=== PATIENT | male | born 1970 | race Caucasian/White ===

== ENCOUNTER 2016-11-22 18:22 | Observation (INO) ==
[2016-11-22] MEDS ORDERED: Aspirin 81 MG TAB.CHEW PO ONE (18:44)
[2016-11-22 19:04] LABS: Basophils % 0.4 %; Eosinophils # 0.1 K/mcL (0.0-0.6); Eosinophils % 1.3 %; Hemoglobin 15.8 g/dL (12.9-16.9); Immature Granulocytes % 0.3 % (0-4); Immature Platelets 3.9 % (1.1-6.1); Lymphocytes # 2.1 K/mcL (0.6-4.6); Lymphocytes % 27.7 %; Mean Corpuscular HGB Conc 35.1 g/dL (31.6-35.5); Mean Corpuscular Hemoglobin 29.5 pg (28.0-33.3); Mean Corpuscular Volume 84.1 fL (83.0-100.0); Mean Platelet Volume 10.7 fL (9.4-12.4); Monocytes # 0.6 K/mcL (0.0-1.3); Monocytes % 8.3 %; Neutrophils # 4.7 K/mcL (1.6-8.9); Platelet Count 222 K/mcL (140-400); Red Blood Count 5.35 M/mcL (4.19-5.50); Red Cell Distribution Width 13.4 % (11.5-14.5)
[2016-11-22 19:16] LABS: BUN/Creatinine Ratio 21 (6-26); Blood Urea Nitrogen 15 mg/dL (8-26); Calcium 8.5 mg/dL (8.6-10.8); Carbon Dioxide 21 mEq/L (19-29); Chloride 109 mEq/L (98-109); Glucose 104 mg/dL (70-99); Osmolality,Calculated 287 (280-300); Potassium 3.9 mEq/L (3.5-4.5); Sodium 138 mEq/L (136-145); eGFR For African Americans > 60 (> 60); eGFR For Non-African Americans > 60 (> 60)
[2016-11-22] MEDS: Nitroglycerin 0.4 MG TAB.SUBL SL ONE ×2 (19:18→19:27)
--- NOTE | 2016-11-22 19:36 | Emergency Department Note ---
Disposition Clinical Impression: Chest pain Qualifiers: Chest pain type: unspecified Qualified Code(s): R07.9 - Chest pain, unspecified Disposition: Admitted As Inpatient Condition: Good Referrals: Opal Barnes DO [Primary Care Provider] - Forms: ED Satisfaction Letter Chest Pain HPI - General Chief Complaint: ED Chest Pain Stated Complaint: ISIDRO, chest pain Time Seen by Provider: 11/22/16 18:33 Source: patient Mode of arrival: ambulatory Limitations: no limitations Vital Signs Reviewed: Yes Nursing Notes Reviewed: Yes - History of Present Illness HPI Narrative: 45-year-old Hina Pearce the ER due to chest pain. Pt complaint: chest pain Onset (ago): hour(s) (3 hours) Duration: constant Onset: during rest Severity scale (1-10): 7 Quality: heaviness Pain Radiation: neck Improves with: nothing Worsens with: nothing Associated symptoms: Reports: diaphoresis, dyspnea. Denies: nausea, vomiting, syncope, palpitations Treatments prior to arrival chest pain: none - Related Data On Oral Contraceptives: No Home Medications Medication Instructions Recorded Confirmed Irbesartan [Avapro] 300 mg PO DAILY 10/19/15 11/22/16 LORazepam [Ativan] 1 mg PO TID PRN 10/19/15 11/22/16 Zolpidem [Ambien] 10 mg PO HS PRN 11/22/16 11/22/16 Allergies Allergy/AdvReac Type Severity Reaction Status Date / Time cephalexin [From Keflex] AdvReac Vomiting Verified 04/29/16 10:55 All systems ED: reviewed and negative except as stated. Constitutional: Denies: fever Cardiovascular: Reports: chest pain, dyspnea on exertion. Denies: palpitations Respiratory: Reports: dyspnea. Denies: cough, wheezes Gastrointestinal: Denies: abdominal pain, nausea, vomiting Musculoskeletal: Reports: neck pain Chest Pain PMH - Past Medical History Medical history: Reports: hypertension Surgical history: Reports: herniorrhaphy Psychiatric history: Reports: anxiety - Social History Smoking Status: Current every day smoker Alcohol use: Reports: none Drug use: Reports: none Physical Exam - General Limitations: no limitations General appearance: alert, in no apparent distress - Head Head exam: atraumatic, normocephalic, normal inspection - Eye Eye exam: Present: normal appearance - ENT ENT exam: normal exam - Neck Neck exam: Present: normal inspection - Chest Chest inspection: Present: normal inspection. Absent: tenderness - Respiratory Respiratory exam: Present: normal lung sounds bilaterally, respiratory distress - Cardiovascular Cardiovascular exam: Present: regular rate, normal rhythm, normal heart sounds - Abdominal Exam Abdominal exam: Present: soft, Non-Tender. Absent: guarding, rigidity - Extremities Exam Extremities exam: Present: normal inspection - Expanded Lower Extremity Exam Hip/Pelvis exam: Present: normal inspection Upper leg exam: Present: normal inspection Knee exam: Present: normal inspection Lower leg exam: Present: normal inspection Ankle exam: Present: normal inspection Foot/toe exam: Present: normal inspection - Back Exam Back exam: Present: normal inspection - Neurological Exam Neurological exam: Present: alert - Psychiatric Psychiatric exam: Present: normal affect, normal mood - Skin Skin exam: Present: warm, dry, intact Course Course Narrative: 45-year-old male history of hypertension, status post gastric bypass who presents to the ER with a chief complaint of chest pain. Patient reports chest pain began 3 hours prior to arrival while he was mowing grass. He describes it as a heaviness in the center of his chest with radiation into his neck. He reports shortness of breath as well. He states for the last 2 weeks he has been intermittently short of breath with exertion and with laying flat. He reports some dizziness prior to arrival and when walking here today. He states that he has had chest pain before and has had a stress test in the past. Reports that grandfather at 41 of [place] and uncle at 43. No other complaints. Plan for this patient is an EKG, chest x-ray as well as basic labs including troponin and BNP. Given aspirin here as well as nitroglycerin 2 without improvement of the symptoms. We will order a CTA of the chest for further investigation. - Reevaluation(s) Reevaluation #1: Discussed results of imaging and laboratory the patient. He reports that he is still having pain like something else for it. We will order a dose of morphine. Vital Signs Temperature 97.6 F 11/22/16 18:29 Pulse Rate 125 11/22/16 18:29 Respiratory Rate 20 11/22/16 18:29 Blood Pressure 159/87 11/22/16 18:29 O2 Sat by Pulse Oximetry 97 11/22/16 18:29 Temperature 97.6 F 11/22/16 18:29 Pulse Rate 93 11/22/16 20:43 Respiratory Rate 18 11/22/16 20:43 Blood Pressure 130/71 11/22/16 20:43 O2 Sat by Pulse Oximetry 96 11/22/16 20:43 Oxygen Delivery Oxygen Delivery Room Air Chest Pain - MDM Narrative Medical decision making narrative: 45-year-old male presents to the ER with a chief complaint of chest pain. History is concerning for unstable angina. His last stress test was in 2014 and he reports that he did not have the one he was supposed to in the summer of 2015. His EKG here shows sinus tachycardia without ischemic findings. His troponin is negative. Chest x-ray and CTA unremarkable. We will admit to the hospital for further management. - Lab Data Lab results reviewed: Yes I reviewed the patient's lab results. Result diagrams: 11/22/16 18:52 11/22/16 18:52 Lab Results 11/22/16 11/22/16 11/22/16 Range/Units 18:52 18:52 18:52 WBC 7.6 (4.3-11.1) K/mcL RBC 5.35 (4.19-5.50) M/mcL Hgb 15.8 (12.9-16.9) g/dL Hct 45.0 (37.5-50.1) % MCV 84.1 (83.0-100.0) fL MCH 29.5 (28.0-33.3) pg MCHC 35.1 (31.6-35.5) g/dL RDW 13.4 (11.5-14.5) % Plt Count 222 (140-400) K/mcL MPV 10.7 (9.4-12.4) fL Immature Gran % 0.3 (0-4) % Seg Neutrophils % 62.0 % Lymphocytes % 27.7 % Monocytes % 8.3 % Eosinophils % 1.3 % Basophils % 0.4 % Neutrophils # 4.7 (1.6-8.9) K/mcL Lymphocytes # 2.1 (0.6-4.6) K/mcL Monocytes # 0.6 (0.0-1.3) K/mcL Eosinophils # 0.1 (0.0-0.6) K/mcL Basophils # 0.0 (0.0-0.2) K/mcL Immature Plt Fraction 3.9 (1.1-6.1) % Sodium 138 (136-145) mEq/L Potassium 3.9 (3.5-4.5) mEq/L Chloride 109 (98-109) mEq/L Carbon Dioxide 21 (19-29) mEq/L BUN 15 (8-26) mg/dL Creatinine 0.73 (0.72-1.25) mg/dL Est GFR ( Amer) > 60 (> 60) Est GFR (Non-Af Amer) > 60 (> 60) BUN/Creatinine Ratio 21 (6-26) Glucose 104 H (70-99) mg/dL Calculated Osmolality 287 (280-300) Calcium 8.5 L (8.6-10.8) mg/dL Troponin I 0.00 (0-0.03) ng/mL - Radiology Data Radiology results reviewed: Yes I reviewed the patient's radiology results. Chest X-Ray 11/22/16 18:36 IMPRESSION: Normal chest x-ray D/ / Mal Mclaughlin MD / Mal Mclaughlin MD Interpreting Provider: Mal Mclaughlin MD Chest CTA 11/22/16 19:36 IMPRESSION: No evidence of pulmonary embolism. No acute abnormality. D/ / Catalino Henao MD / Catalino Henao MD Interpreting Provider: Catalino Henao MD - EKG Data EKG attestation: Yes I reviewed and interpreted this EKG. EKG results narrative: EKG shows sinus tachycardia with a rate of 113. Normal axis. OH interval 182 QRS duration [address] elevations or depressions. No acute ischemic findings. EKG shows normal: sinus rhythm Rate: tachycardia Rhythm: NSR [place]/QRS: normal Interpretation: other (Sinus tachycardia) Heart Score - Score History: Moderately Suspicious EKG: Non Specific repolarisation Disturbance Age: Less than 45 Risk Factors: 1-2 risk factors Troponin: Less than normal limit HEART Score Total: 3 S.B.A.R. - S.B.A.R. Situation: Demographics, MOA Background: Presenting Complaint, Relevant PMH, Meds, & Allergies Assessment: Vital Signs, Course and respsone to treatment, Exam Concerns, Patient/Family Expectation, Pertinant Lab Results, Outstanding Labs Recommendation: Barrier(s) to disposition, Recommendation based on pending studies, treatments, or consults Ilia Report Given to: Dr. Nelly Morillo Repor Time: 20:53
--- NOTE | 2016-11-22 19:43 | Emergency Department Note ---
Disposition Clinical Impression: Chest pain Disposition: Admitted As Inpatient Condition: Good General Adult HPI - General Chief complaint: ED Chest Pain Stated complaint: ISIDRO, chest pain Time Seen by Provider: 11/22/16 18:33 Source: patient Mode of arrival: ambulatory Limitations: no limitations - History of Present Illness Pain Scale: 7 - Related Data Home Medications Medication Instructions Recorded Confirmed Irbesartan [Avapro] 300 mg PO DAILY 10/19/15 11/22/16 LORazepam [Ativan] 1 mg PO TID PRN 10/19/15 11/22/16 Zolpidem [Ambien] 10 mg PO HS PRN 11/22/16 11/22/16 Allergies Allergy/AdvReac Type Severity Reaction Status Date / Time cephalexin [From Keflex] AdvReac Vomiting Verified 04/29/16 10:55 Past Medical History - Past Medical History Medical history: Reports: hypertension Surgical history: Reports: herniorrhaphy Psychiatric history: Reports: anxiety - Social History Smoking Status: Current every day smoker Smokeless Tobacco Status: No Alcohol use: Reports: none Drug use: Reports: none Physical Exam - General Limitations: no limitations General appearance: alert, in no apparent distress Course - Reevaluation(s) Reevaluation #1: I saw the patient with the resident, Dr. Graham. Patient presents with complaint predominately of shortness of breath over the past 3 weeks but today has had some chest pain as well. He says it all started about 3 weeks ago when he dud a grave for his dog. He states he did not think he would make it back to the hospital because he was so short of breath. Since then he has noticed shortness of breath particularly when he is laying down at night to sleep. He does note some exertional dyspnea as well. Today he had chest pain after mowing the lawn. He was on a riding mower. He developed chest discomfort associated with some diaphoresis and some shortness of breath. Here in the Department he is a little bit anxious and tachycardic but otherwise physical exam is unremarkable. EKG Shows no ischema changes. Initial set of labs is negative including troponin. Were going to do a CTA of his chest to assess for pulmonary embolism. Disposition will be based on diagnostic results and reevaluation. Time: 19:43 Vital Signs Temperature 97.6 F 11/22/16 18:29 Pulse Rate 125 11/22/16 18:29 Respiratory Rate 20 11/22/16 18:29 Blood Pressure 159/87 11/22/16 18:29 O2 Sat by Pulse Oximetry 97 11/22/16 18:29 Temperature 97.9 F 11/23/16 19:43 Pulse Rate 82 11/23/16 19:43 Respiratory Rate 16 11/23/16 19:43 Blood Pressure 116/78 11/23/16 19:43 O2 Sat by Pulse Oximetry 96 11/23/16 19:43 Oxygen Delivery Oxygen Delivery Room Air Medical Decision Making - Lab Data Result diagrams: 11/22/16 18:52 11/22/16 18:52 Lab Results 11/22/16 11/22/16 11/22/16 Range/Units 18:52 18:52 18:52 WBC 7.6 (4.3-11.1) K/mcL RBC 5.35 (4.19-5.50) M/mcL Hgb 15.8 (12.9-16.9) g/dL Hct 45.0 (37.5-50.1) % MCV 84.1 (83.0-100.0) fL MCH 29.5 (28.0-33.3) pg MCHC 35.1 (31.6-35.5) g/dL RDW 13.4 (11.5-14.5) % Plt Count 222 (140-400) K/mcL MPV 10.7 (9.4-12.4) fL Immature Gran % 0.3 (0-4) % Seg Neutrophils % 62.0 % Lymphocytes % 27.7 % Monocytes % 8.3 % Eosinophils % 1.3 % Basophils % 0.4 % Neutrophils # 4.7 (1.6-8.9) K/mcL Lymphocytes # 2.1 (0.6-4.6) K/mcL Monocytes # 0.6 (0.0-1.3) K/mcL Eosinophils # 0.1 (0.0-0.6) K/mcL Basophils # 0.0 (0.0-0.2) K/mcL Immature Plt Fraction 3.9 (1.1-6.1) % Sodium 138 (136-145) mEq/L Potassium 3.9 (3.5-4.5) mEq/L Chloride 109 (98-109) mEq/L Carbon Dioxide 21 (19-29) mEq/L BUN 15 (8-26) mg/dL Creatinine 0.73 (0.72-1.25) mg/dL Est GFR ( Amer) > 60 (> 60) Est GFR (Non-Af Amer) > 60 (> 60) BUN/Creatinine Ratio 21 (6-26) Glucose 104 H (70-99) mg/dL Calculated Osmolality 287 (280-300) Calcium 8.5 L (8.6-10.8) mg/dL Troponin I 0.00 (0-0.03) ng/mL Attestation Statement - Attestation Attestation: I, Dr. Bell, examined this patient [id number] and my medical decision- making was reviewed with Dr. Graham, Resident Physician. I agree with the documented findings, disposition and treatment plan as described except to the extent set forth below. Please see my partner's note for details.
[2016-11-22] MEDS ORDERED: *HR* Morphine 2 MG/ML SYRINGE IVP ONE (20:36)
[2016-11-22] MEDS ORDERED: Naloxone 0.4 MG/ML INJ IVP PRN (22:19)
[2016-11-22] MEDS ORDERED: Acetaminophen 325 MG TABLET PO PRN (22:19)
[2016-11-22] MEDS ORDERED: Ondansetron 4 MG/2 ML VIAL IVP PRN (22:19)
--- NOTE | 2016-11-22 22:39 | Internal Med History&Physical ---
Date of Encounter: 11/22/16 Time of Encounter: 22:05 Internal Medicine - H&P: HPI Chief complaint: Chest pain, SOB, orthopnea Admitted From: Emergency Dept Plans for Post Hospital Care: Home History of present illness: Mr. Perez is a 45 year old male with medical history significant for hypertension, morbid obesity s/p gastric bypass presents with exertional chest pain, while he was mowing grass today. He had a similar episode 2 weeks ago while diggig a hole to bury his dog. Chest pain last last on average 30 minutes to 1 hour. He has not experienced chest pain at rest lately. He reports weeks of orthopnea, associated with nocturnal wheezing when he is in bed. No leg swelling. He reports that his chest pain is more like heaviness on his chest. No radiation to arm or jaws. He reports some dizziness today. He had stress testing 1 year ago (his account), but there is no record of this in his chart. He denies history of CAD/PA, COPD. He was informed after pretesting for gastric bypass that he may have RAMIREZ, but he lost some weight and he was reassured that it should resolve. However he has put on 80 lbs of weight over the past couple of years. He was never prescribed nocturnal oxygen supplementation of CPAP. He continue to smoke cigarrette, 28 ack year smoking histry. He wants to quit smoking and has considered asking his PCP to prescribe Chantix. He is FULL CODE as per discussion. He nominates his as his NOK/POA , Sharifa Perez ([phone]). ROS: A 10-point ROS was performed, positives and relevant negatives are detailed , system-symptiom not mentioned assumed negative unless otherwise stated. Family history: No first degree family hiostory of CAD, PVA, CVA. Father has atrial fibrillation and HTN, HIS SISTER HAS CARDIAC arrhythmia. Vital Signs Temperature 97.6 F 11/22/16 18:29 Pulse Rate 125 11/22/16 18:29 Respiratory Rate 20 11/22/16 18:29 Blood Pressure 159/87 11/22/16 18:29 O2 Sat by Pulse Oximetry 97 11/22/16 18:29 Temperature 97.6 F 11/22/16 18:29 Pulse Rate 93 11/22/16 20:43 Respiratory Rate 18 11/22/16 20:43 Blood Pressure 130/71 11/22/16 20:43 O2 Sat by Pulse Oximetry 96 11/22/16 20:43 O/E: Not in distress, he is not ill or toxic looking, morbidly obese. HEENT: Not pale, anicteric, afebrile, acyanotic, non-tachypneic, no JVD Chest: CTAB, relative reduction of air entry in the lung bases. Heart: RRR, HS1.2 no murmur Abdomen: Obese/distended, soft, non-tender, no masses. 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 Psychiatry: mood is good, affect is congruent, speech is normal. Thought process is logical and goal-directed. Extremities: No pedal edema, normal pedal edema, no calf tenderness. Lab Results 11/22/16 11/22/16 11/22/16 Range/Units 18:52 18:52 18:52 WBC 7.6 (4.3-11.1) K/mcL RBC 5.35 (4.19-5.50) M/mcL Hgb 15.8 (12.9-16.9) g/dL Hct 45.0 (37.5-50.1) % MCV 84.1 (83.0-100.0) fL MCH 29.5 (28.0-33.3) pg MCHC 35.1 (31.6-35.5) g/dL RDW 13.4 (11.5-14.5) % Plt Count 222 (140-400) K/mcL MPV 10.7 (9.4-12.4) fL Immature Gran % 0.3 (0-4) % Seg Neutrophils % 62.0 % Lymphocytes % 27.7 % Monocytes % 8.3 % Eosinophils % 1.3 % Basophils % 0.4 % Neutrophils # 4.7 (1.6-8.9) K/mcL Lymphocytes # 2.1 (0.6-4.6) K/mcL Monocytes # 0.6 (0.0-1.3) K/mcL Eosinophils # 0.1 (0.0-0.6) K/mcL Basophils # 0.0 (0.0-0.2) K/mcL Immature Plt Fraction 3.9 (1.1-6.1) % Sodium 138 (136-145) mEq/L Potassium 3.9 (3.5-4.5) mEq/L Chloride 109 (98-109) mEq/L Carbon Dioxide 21 (19-29) mEq/L BUN 15 (8-26) mg/dL Creatinine 0.73 (0.72-1.25) mg/dL Est GFR ( Amer) > 60 (> 60) Est GFR (Non-Af Amer) > 60 (> 60) BUN/Creatinine Ratio 21 (6-26) Glucose 104 H (70-99) mg/dL Calculated Osmolality 287 (280-300) Calcium 8.5 L (8.6-10.8) mg/dL Troponin I 0.00 (0-0.03) ng/mL Chest X-Ray 11/22/16 18:36 Normal chest x-ray Chest CTA 11/22/16 19:36 No evidence of pulmonary embolism. No acute abnormality EKG: ST @ 113 normal axis, no acute ST-T segment changes. IMP Chest pain, typical Shortness of breath with orthopnea: Probable CHF Probable obstructive sleep apnea with pulmonary hypertension Sinus tachycardia related to the above diagnosis. Chronic morbidities Hypertension Morbid obesity s/p gastric bypass surgery Chronic tobacco abuse PLAN Admit to telemetry IV Lasix 40mg x 1 dose 2D ECHO, cardiac stress test in the AM Cardiology and pulmonology consult He will benefit from sleep study and pulmonary function test in the outpatient setting Continue medications of chronic morbidities Lovenox 40mg SC qd No indication for GI prophylaxis Elevate bed of bed tonight. Smoking cessation discussed. I discussed my findings and assessment with the patient, he verbalized understanding and is agreeable to admission. He is admitted for evaluation of CP , POLK, orthopnea. Past Med Surg Social Fam HX - Past Medical History Medical history: hypertension Psychiatric history: anxiety - Past Surgical History Surgical History: herniorrhaphy - Social History Smoking Status: Current every day smoker Smokeless Tobacco Status: No Alcohol use: none Drug use: none - Family History Father Hx Family Cardiac Disorders: Yes Hx Family Cancer: Yes Internal Medicine - H&P: Meds Irbesartan [Avapro] 300 mg PO DAILY 10/19/15 [History] LORazepam [Ativan] 1 mg PO TID PRN 10/19/15 [History] Zolpidem [Ambien] 10 mg PO HS PRN 11/22/16 [History] Allergies cephalexin [From Keflex] Adverse Reaction (Verified 04/29/16 10:55) Vomiting All Systems PM: A 10-system review of systems was performed and is negative for pertinent findings except as documented above in the HPI. - Constitutional Vitals: Temp Pulse Resp BP Pulse Ox 97.6 F 93 18 124/81 96 11/22/16 18:29 11/22/16 20:43 11/22/16 21:10 11/22/16 21:10 11/22/16 20:43 Internal Med - H&P Results - Labs CBC & Chem 7: 11/22/16 18:52 11/22/16 18:52
[2016-11-22] MEDS ORDERED: Albuterol 2.5 MG/3 ML NEBULIZER IH PRN (22:59)
[2016-11-22] MEDS ORDERED: Furosemide 40 MG/4 ML VIAL IVP ONE (23:19)
[2016-11-23] MEDS: *HR* LORazepam 0.5 MG TABLET PO PRN ×2 (02:01→12:54)
[2016-11-23 05:48] LABS: Thyroid Stimulating Hormone 3.087 mcIU/mL (0.350-4.840)
[2016-11-23] MEDS ORDERED: Regadenoson 0.4 MG/5 ML SYRINGE IVP ONE (06:04)
[2016-11-23] MEDS: Aspirin 81 MG TAB.CHEW PO SCH (09:00)
--- NOTE | 2016-11-23 09:20 | Pulmonology Consult Note ---
Date of Encounter: 11/23/16 Time of Encounter: 09:17 Assessment and Plan (1) Dyspnea Current Visit: Yes Status: Acute Exertional dyspnea in conjunction with cough and chest congestion as well as wheeze are manifestations of airway disease and possibly reactive airway disease. In this cigarette smoker, these are likely manifestations of smoker's bronchitis, I seriously doubt the patient has asthma. In this regard, I have suggested ER and use of albuterol inhaler. Furthermore, I also suggested the crux of treatment to be complete abstinence from tobacco use which was reviewed in detail with the patient. Regard to sleep apnea, the patient is noncompliant with BiPAP device and reports bariatric surgery as an alternative treatment strategy for treatment of obstructive sleep apnea. I did encourage use of BiPAP device unless and until the patient has sustained substantial weight loss. The patient's other complaint is which include chest pressure tightness and heaviness with exertional activity may be related to cardiac disease. The patient relates a history of a prior negative stress test but is vague on the details and furthermore, it is my understanding that the patient will undergo formal cardiac evaluation to ensure he does not have significant coronary disease. Please call should you have any questions. ` [facility] [phone] Qualifiers: Dyspnea type: dyspnea on exertion Qualified Code(s): R06.09 - Other forms of dyspnea History of Present Illness Consult date: 11/23/16 Chief complaint: Dyspnea, cough History of present illness: This morbidly obese 45-year-old male was admitted to the hospital with complaints of dyspnea, mild chest congestion, nonproductive cough, chest pressure and heaviness and tightness with exertional activities. He is an active cigarette smoker and periodically throughout the year, notes congestion cough wheeze in conjunction with changes in weather temperature and humidity. This individual is an active cigarette smoker for approximately [id number] intensity. He has no significant occupational respiratory exposures to fibrogenic substances or sensitizing agents. 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 The patient does admit to excessive daytime sleepiness morning headaches snores and has been diagnosed with sleep apnea per his description however he is noncompliant with use of PAP device. Past Med Surg Social Fam HX - Past Medical History Medical history: hypertension Psychiatric history: anxiety - Past Surgical History Surgical History: herniorrhaphy - Social History Smoking Status: Current every day smoker Packs per day: 1 Smokeless Tobacco Status: No Alcohol use: none Drug use: none - Family History Father Hx Family Cardiac Disorders: Yes Hx Family Cancer: Yes Medications and Allergies Irbesartan [Avapro] 300 mg PO DAILY 10/19/15 [History] LORazepam [Ativan] 1 mg PO TID PRN 10/19/15 [History] Zolpidem [Ambien] 10 mg PO HS PRN 11/22/16 [History] Allergies cephalexin [From Keflex] Adverse Reaction (Verified 04/29/16 10:55) Vomiting All Systems: A 10-system review of systems was performed and is negative for pertinent findings except as documented above in the HPI. - Constitutional Constitutional: as per HPI - Cardiovascular Cardiovascular: as per HPI - Respiratory Respiratory: as per HPI Physical Examination Vital Signs: Vital Signs, Last 4 Hours Temp Pulse Resp BP Pulse Ox 11/23/16 07:23 97.5 F L 76 17 131/86 93 L General appearance: no acute distress, other (Morbidly obese male) Eyes: nonicteric ENT: oropharynx moist Mallampati (class): 3 Neck: supple Effort: normal Inspection: normal Auscultation: bilateral: clear Cardiovascular: regular rate and rhythm Gastrointestinal: normoactive bowel sounds, non-distended Integumentary: normal Extremities: no cyanosis, no edema Musculoskeletal: no deformities normal mental status, non-focal exam mood appropriate Results - Laboratory Findings CBC and BMP: 11/22/16 18:52 11/22/16 18:52 Abnormal lab findings: Abnormal lab results Glucose 104 mg/dL (70-99) H 11/22/16 18:52 Calcium 8.5 mg/dL (8.6-10.8) L 11/22/16 18:52 HDL Cholesterol 30 mg/dL (40-59) L 11/23/16 04:34 - Diagnostic Findings CT scan - chest: image reviewed (CT scan of the chest reviewed and notable for normal appearance of airways, lung parenchyma and furthermore no evidence of thromboembolic disease.) - Clinical Findings Intake & Output: Intake & Output 11/22/16 11/23/16 11/23/16 23:59 07:59 15:59 Output Total 1400 / 1400 700 / 700 Balance -1400 / -1400 -700 / -700 Weight 127.006 kg 127.006 kg Consult Discharge Plan - Plan Referrals: Opal Barnes DO [Primary Care Provider] -
[2016-11-23] MEDS ORDERED: Perflutren Lipid Microsphere 1.3 ML in 0.9 % Sodium Chloride 8.7 ML IVP ONE (11:27)
--- NOTE | 2016-11-23 13:00 | ECHO - Doppler Report ---
Echo with Imaging Enhancement Agent Name: Jacinto Perez Date of Study: 11/23/2016 Date: 1970 Ht: 72.0 in Medical Record#: [id number] Age: 45 Wt: 280.0 lb Gender: Male BSA: 2.46 Order #: [id number] Location: [facility] Room #: 3B Reading Physician: Becca Blankenship DO Patent Leather Sorter: Jo Bedolla RVT Ordering Physician: Shayan Villegas MD Primary Physician: Opal Barnes DO Indications: Shortness of breath, POLK, PND Impressions: LVEF 60-65%. Definity was given. There is evidence of moderate diastolic dysfunction of the left ventricle. Normal right ventricular size and function. No significant valvular dysfunction although not all valves were well evaluated. No pulmonary hypertension. Left Ventricular Wall Motion: Rest Echo Findings The mid inferior lateral and basal inferior lateral mendoza were not visualized. All other wall segments showed normal motion. Findings: Study Quality * Technically sub-optimal due to body habitus. Suboptimal PLAX. ECG Findings * Normal sinus rhythm. Aortic Valve * No aortic regurgitation. * Aortic valve not well visualized. * Suboptimal Doppler evaluation. Mitral Valve * No mitral regurgitation. * Suboptimal Doppler evaluation. * Normal mitral valve structure. * No mitral stenosis visually. Tricuspid Valve * Tricuspid valve not well visualized. * No tricuspid regurgitation. Pulmonic Valve * Pulmonic valve is not well visualized. * No pulmonic stenosis. * No pulmonic regurgitation. Pulmonary Artery * Pulmonary artery not well visualized. Left Ventricle * Moderate left ventricular diastolic dysfunction. * LVEF 60-65%. * Definity echo contrast was used. * Suboptimal PLAX imaging to measure LV size and wall thickness. Right Ventricle * Normal right ventricular structure and function. Left Atrium * Normal left atrial size. Right Atrium * Normal right atrial size. Aorta * Normally sized aortic root. Pericardium * There is no pericardial effusion present. Interatrial Septum * Interatrial septum not well evaluated. Possible PFO with color flow imaging. IVC * The IVC is not well evaluated. History Hypertension History of Smoking Years 25 Packs 1 Contrast: Definity 1.3 ml in 8.7 ml of saline 3 ml. Measurements: BP: 144/ 75 2D Normal Values LVIDd: 5.40 cm 3.7 - 5.6 cm %FS: 23.40 cm >25 % LA volume: 20.1 Mitral Valve Peak Velocity 2.43 m/sec Mean Velocity:1.95 m/sec Peak Grad:24.00 mmHg Mean Grad:16.00 mmHg Pressure Time:86.00 msec Valve Area:.54 cm2 Peak E:1.04 m/sec Peak A:.49 m/sec E/A Ratio:2.1 Peak E' Lat Augustin:7.83 cm/s Peak E' Med Augustin:7.09 cm/s E/E' Lat Ratio:13.3 E/E' Med Ratio:14.7 LVOT Peak Augustin:1.13 m/sec Mean Augustin:.64 m/sec Peak Grad:5.00 mmHg Mean Grad:2.00 mmHg Aortic Valve Peak Augustin:2.46 m/sec Mean Augustin:1.87 m/sec Peak Grad:24.00 mmHg Mean Grad:15.33 mmHg Valve Area:.54 cm2 Tricuspid Valve TV Regurg Peak Grad: 8.00mmHg TV Regurg Peak Augustin: 1.42m/sec Updated by Becca Blankenship on 11/23/2016 12:52:52 PM electronically signed on 11/23/2016 12:55:34 PM with status of Final Wall Motion Ma: 1=Normal, 2=Hypokinesis, 3=Akinesis, 4=Dyskinesis, 5=Aneurysmal, 6=Hyperkinetic, X=Not Visualized (Blank)=Missing
--- NOTE | 2016-11-23 16:55 | Internal Med Progress Note ---
Date of Encounter: 11/23/16 Time of Encounter: 13:00 - Assessment and plan (1) Chest pain Current Visit: Yes Status: Acute Assessment and plan: Patient undergoing a stress test, will follow results. Keep nothing by mouth after midnight. Negative cardiac biomarkers for ischemia. Echocardiogram noted, with diastolic dysfunction. Qualifiers: Chest pain type: precordial pain Qualified Code(s): R07.2 - Precordial pain (2) Obesity (BMI 30-39.9) Current Visit: No Status: Chronic (3) Tobacco abuse Current Visit: No Status: Chronic (4) Obstructive sleep apnea Current Visit: Yes Status: Acute Assessment and plan: Evaluation by pulmonology highly appreciated, continue with current medications. BiPAP ordered. - Time Spent With Patient 25 - 35 minutes - Subjective Interval history: 1st encounter with the patient. The patient was complaining of substernal chest pain. He denies shortness of breath, fever, cough. He has a history of obstructive sleep apnea, however is noncompliant with BiPAP. - Constitutional Vitals: Temp Pulse Resp BP Pulse Ox 97.7 F 75 17 122/78 95 11/23/16 15:35 11/23/16 15:35 11/23/16 15:35 11/23/16 15:35 11/23/16 15:35 General appearance: Present: cooperative, A&O X 3, pleasant, obese - Head Head exam: Present: atraumatic, normocephalic - Eye Eye exam: Present: PERRL, conjuntiva pink, sclera anicteric Pupils: Present: PERRL - Neck Neck exam general surgery: Present: supple, trachea midline. Absent: lymphadenopathy - Respiratory Respiratory exam: Present: CTAB. Absent: accessory muscle use, rales, rhonchi, wheezes - Cardiovascular Cardiovascular exam: Present: RRR, +S1, +S2. Absent: diastolic murmur, gallop, rubs, systolic murmur - GI/Abdominal GI/Abdominal exam: Present: normal bowel sounds, soft, no peritoneal signs. Absent: distended, tenderness - Extremities Exam Extremities exam: Present: warm, radial pulses palpable and symetrical. Absent : calf tenderness, cyanotic, pedal edema - Neurological Exam Neurological exam: Present: CN II-XII intact, oriented X3, no focal deficits. Absent: pronater drift, facial droop, speech deficit - Skin Skin exam: Present: dry, intact Internal Medicine: Result - Labs CBC & Chem 7: 11/22/16 18:52 11/22/16 18:52 Labs: Cardiac Enzymes 11/23/16 Range/Units 04:34 Troponin I 0.00 (0-0.03) ng/mL Consult Discharge Plan - Plan Referrals: Opal Barnes DO [Primary Care Provider] -
[2016-11-23] MEDS: *HR* HYDROcodone/Acet 5/325 mg TABLET PO PRN (17:31)
--- NOTE | 2016-11-23 18:03 | Electrocardiograph Report ---
[place] [address] Test Date: 2016-11-22 Pat Name: Jacinto Perez Department: 103 Room: [facility] Gender: M Horse Shoer: : 1970 Requested By: Florentino Graham Order Number: [id number] Reading MD: Syl Timmons Measurements Intervals [place] Rate: 113 P: 19 CO: 182 QRS: -12 QRSD: 98 T: 53 QT: 321 QTc: 388 Interpretive Statements SINUS TACHYCARDIA INFERIOR MYOCARDIAL INFARCTION, OF INDETERMINATE AGE Electronically Signed On 11-23-2016 18:01:45 EST by Syl Timmons
--- NOTE | 2016-11-24 09:02 | Nuclear Medicine Stress Report ---
Low Level Regadenoson 2 day Name: Jacinto Perez Date of Study: 11/23/2016 Date: 1970 Ht: 72.0 in Medical Record#: [id number] Age: 45 Wt: 280.0 lb Gender: Male Order #: [id number] Location: [facility] Room: [facility] Supervising Provider: Jeffy Clement CNP Reading Physician: Becca Blankenship DO Ordering Physician: Raiza Upton CNP Primary Care Physician: Opal Barnes DO Stress Technologist: Benjamin Mays, BLOCK CUTTER, CPFT Fire Sprinkler Installer: Dequan Prather Indications: Chest Pain Impression: Partially fixed defect involving the inferior wall. Wall motion is normal suggesting artifact. However, there is worsening perfusion on stress images in which ischemia cannot be ruled out. Low level exercise ECG was negative for ischemia. No complaints of chest pain. Gated EF = 65%. History: Hypertension Stress Test Summary: Stress Test Type: Low level pharmacologic Regadenoson 0.4mg/5ml given IV Baseline Information: Initial Heart Rate: 92 Blood Pressure: 128/78 Stress Information: Stress Time: 4 min 00 sec Test Terminated Due to (primary): As per protocol Maximum Blood Pressure: 142/76 Maximum Heart Rate: 123 Percent Maximum Heart Rate Achieved: 69 Double Product: 99631 METS Reached: 2.1 Symptoms: Shortness of breath, [place] Nuclear Summary: SPECT myocardial perfusion imaging using Tc99m Sestamibi given intravenously was performed at rest and following cardiac stress testing. The resting images were obtained following initial dose of 33.4 mCi. Following stress an additional dose of 35.2 mCi was given at peak exercise or 30 seconds post regadenoson infusion. Medication Given: Time Medication Dose Units Route Findings: Stress Note * Resting ECG demonstrated normal sinus rhythm with nonspecific ST abnormalities. * Low level exercise/ pharmacologic stress ECG is negative for ischemia at level of heart rate achieved. * Patient had no chest pain during stress. * No arrhythmias were noted during stress. Hemodynamic responses * Normal hemodynamic responses to low level exercise plus pharmacologic stress. Study Quality * Study quality was fair. Left Ventricle * The left ventricle is not dilated. TID * No evidence of transient ischemic dilatation. Lung Uptake * There is no evidence of increase lung uptake. NORMALS * Normal wall motion. PERFUSION * There is a small sized, mild intensity resting perfusion defect involving the basal and mid inferior wall. * During stress, there is a medium sized, mild-moderate intensity perfusion defect involving the basal to distal inferior wall. * These findings are consistent with a partially fixed defect. However, wall motion is normal suggesting against the presence of an infarct. Findings may represent artifact. * Worsening of perfusion in the stress images suggests reversible ischemia. Gated EF % * Gated EF = 65%. Updated by Becca Blankenship on 11/24/2016 8:49:19 AM electronically signed on 11/24/2016 8:58:33 AM with status of Final
--- NOTE | 2016-11-24 09:31 | Internal Med Progress Note ---
<Desiree Lozano - Last Filed: 11/24/16 09:28> Date of Encounter: 11/24/16 Time of Encounter: 09:28 - Assessment and plan (1) Chest pain Status: Acute Assessment and plan: Patient underwent stress test 11/23/16 indicating pertially fixed defect in inferior wall. Worsening perfusion on stress images in which ischemia cannot be ruled out. Low level exercise ECG negative for ischemia. Gated EF=65% Negative cardiac biomarkers for ischemia. Echocardiogram noted, with moderate diastolic dysfunction Consult cardiology Qualifiers: Chest pain type: precordial pain Qualified Code(s): R07.2 - Precordial pain (2) Obesity (BMI 30-39.9) Status: Chronic (3) Tobacco abuse Status: Chronic Assessment and plan: Patient states that he wants help quitting smoking He has refrained from smoking during this hospital stay (4) Obstructive sleep apnea Status: Acute Assessment and plan: Evaluation by pulmonology highly appreciated, continue with current medications Patient states he has been scheduled for sleep study by his PCP - Time Spent With Patient 25 - 35 minutes (Including time with patient and time coordinating care) - Subjective Interval history: Patient denies substernal chest pain at this time. Denies chest pressure. He does complain of left lateral chest wall tenderness at location of left 5th rib. - Constitutional Vitals: Temp Pulse Resp BP Pulse Ox 98.0 F 82 17 129/84 95 11/24/16 07:56 11/24/16 07:56 11/24/16 07:56 11/24/16 07:56 11/24/16 07:56 General appearance: Present: cooperative, A&O X 3, pleasant, obese, answers questions appropriately - Head Head exam: Present: atraumatic, normocephalic - Eye Eye exam: Present: PERRL, conjuntiva pink, sclera anicteric Pupils: Present: PERRL - Neck Neck exam general surgery: Present: supple, trachea midline - Respiratory Respiratory exam: Present: chest wall tenderness (Tenderness to palpation of left 5th rib. Left 5th rib exhaled dysfunction. ), CTAB. Absent: accessory muscle use, rales, rhonchi, wheezes - Cardiovascular Cardiovascular exam: Present: RRR, +S1, +S2. Absent: diastolic murmur, gallop, rubs, systolic murmur - GI/Abdominal GI/Abdominal exam: Present: normal bowel sounds, soft (obese, small hernia in left lower abdominal wall), no peritoneal signs. Absent: distended, tenderness - Extremities Exam Extremities exam: Present: warm. Absent: cyanotic, pedal edema - Neurological Exam Neurological exam: Present: CN II-XII intact, oriented X3, no focal deficits. Absent: pronater drift, facial droop, speech deficit - Skin Skin exam: Present: dry, intact Internal Medicine: Result - Labs CBC & Chem 7: 11/22/16 18:52 11/22/16 18:52 Consult Discharge Plan - Plan Instructions: Chest Pain (DC), Heart Healthy Diet (DC), Chronic Hypertension ( DC), Dyspnea (GEN) Additional Instructions: RISK FACTORS: STOP SMOKING: If you smoke, STOP. Smoking or tobacco use significantly increases your risk of heart disease because nicotine causes the arteries to narrow or constrict. It also causes fats to stick to the artery. Your chances of having a heart attack are greatly increased if you continue to smoke. For more information, call the education line for smoking cessation 4-943-KTNFQGK EAT A LOW FAT/CHOLESTEROL/SODIUM DIET: This diet may help reduce your chances of having a heart attack. LIFTING: With affected extremity: Avoid bending, pushing off and lifting more than 2 pounds for 24 hours The following 48 hours, avoid lifting anything more than 5 pounds Avoid strenuous activity or repetitive motions ACTIVITY: You may walk or climb stairs as tolerated You can resume sexual activity as tolerated In general, you are encouraged to engage in a minimum of 30 minutes or more of moderate intensity physical activity, such as brisk walking, daily or at least 3 -4 times weekly BATHING Do not submerge the site into water (bath tub, hot tub, swimming pool, dishes) for 1 week. This can be a source for infection into the blood stream. You may shower after 24 hours SITE CARE: After 24 hours, you may remove the dressing and leave the site open to air. Keep the site clean and dry. Clean gently and pat dry. You can expect bruising and tenderness that gradually resolve within a week or two. Return to work as instructed per your physician Resume driving as instructed per physician Keep all scheduled follow up appointments Resume medications as instructed IMPORTANT: If prescribed a Platelet Aggregation Inhibitor such as, Plavix, Brilinta or Effient: Duration of therapy is minimum one year These medications are often used in combination with Aspirin in prevention of future heart attacks Never discontinue unless consult with your Hand Counter STROKE (CVA) Risk factors for a stroke are: Age, cigarette smoking, diabetes, excessive alcohol consumption, family history, high blood pressure, overweight, physical inactivity, prior stroke, heart attack, diagnosis of carotid artery stenosis or other artery disease. Warning signs: Sudden numbness or weakness of the face, arm or leg; especially on one side of the body, sudden confusion, trouble speaking or understanding, sudden trouble seeing in one or both eyes, sudden trouble walking, dizziness, loss of balance or coordination, sudden severe headache with no cause. Call 911 or go to the Emergency Room. CONGESTIVE HEART FAILURE: If you have been diagnosed with Congestive Heart Failure (CHF) and your symptoms return, make an appointment with your physician Weigh yourself daily. Notify your physician if you have a weight gain of two or more pounds in one day or five or more pounds in one week. If you experience any difficulty breathing, please call 911 BLEEDING: Although the risk of bleeding is minimal, it can happen. If you have any bleeding from the site, apply firm pressure above the puncture site for 10-15 minutes. If the bleeding does not stop, continue manual pressure and call 911 Contact [facility] ( ) if: You develop a fever greater than 101 degrees Fahrenheit Your site becomes reddened or has any drainage You have an increase in pain or burning at the site or if a large knot forms at the site. If you experience chest pain, shortness of breath, dizziness, or extreme tiredness, stop the activity and rest. Please notify [facility] office if you experience any of these symptoms and they are not relieved by rest please call 911! Referrals: Opal Barnes DO [Primary Care Provider] - (Please call Dr. Barnes's office to make an appointment in the next 5-7 days Thank you! ) Jose Enrique Rogers MD [Partnered Physician] - 01/17/17 11:15 am Prescriptions: Nicotine Patch [Nicoderm] 21 mg TD DAILY #30 patch.[id number] - Attending Attestation I examined this patient and my medical decision-making was reviewed with the TWISTING FRAME OPERATOR/PA/Advanced Practice Nurse/Resident Physician. I agree with the documented findings, disposition and treatment plan as described except to the extent set forth below. <DenNacho Ruthie - Last Filed: 11/24/16 18:03> - Assessment and plan (1) Chest pain Status: Resolved Qualifiers: Chest pain type: precordial pain Qualified Code(s): R07.2 - Precordial pain (2) Obesity (BMI 30-39.9) Status: Chronic (3) Tobacco abuse Status: Chronic (4) Obstructive sleep apnea Status: Chronic - Constitutional Vitals: Temp Pulse Resp BP Pulse Ox 97.8 F 85 16 129/71 95 11/24/16 14:00 11/24/16 15:15 11/24/16 15:15 11/24/16 15:15 11/24/16 15:15 Internal Medicine: Result - Labs CBC & Chem 7: 11/22/16 18:52 11/22/16 18:52 - Attending Attestation I examined this patient and my medical decision-making was reviewed with the TWISTING FRAME OPERATOR/PA/Advanced Practice Nurse/Resident Physician. I agree with the documented findings, disposition and treatment plan as described except to the extent set forth below. D/C home in light of cath findings.
[2016-11-24] MEDS: Aspirin 81 MG TAB.CHEW PO SCH (10:10)
--- NOTE | 2016-11-24 10:44 | Cardiology Consult Note ---
<Jony Muhammad - Last Filed: 11/24/16 10:38> Date of Encounter: 11/24/16 Time of Encounter: 10:38 Assessment and Plan (1) Dyspnea on exertion Current Visit: Yes Status: Acute Patient found to have inferior wall abnormality noted on stress that worsened with exercise. Cardiac cath today. If negative, home and follow-up outpatient. If stented, he will stay overnight. Lipitor 80 mg prior to cath (2) Abnormal stress ECG Current Visit: Yes Status: Acute (3) Hypertension Current Visit: No Status: Chronic On Avapro Qualifiers: Hypertension type: essential hypertension Qualified Code(s): I10 - Essential (primary) hypertension Discussion w patient/family: The assessment and plan as outlined above was discussed with the patient and/or family members who expressed understanding and agreement. All questions were answered. Thank you for involving us in the care of your patient. Please call with any questions. History of Present Illness Consult date: 11/24/16 Requesting physician: Nacho Crenshaw Consult reason: Chest pain, dyspnea Chief complaint: Dyspnea History of present illness: Mr. Perez is a 45 year old male with history of HTN was admitted to [facility] from the ED after the patient was mowing his lawn and began experiencing a large amount of dyspnea and chest pressure. The patient went to the ED where they gave the patient nitro which did not help the patient's pain. Patient negative troponin and negative EKG. Patient does state that he was burying his dog a few weeks ago and then became very short of breath and chest pain. He states that "it felt like I ran a marathon". The patient had an echo that revealed a moderate diastolic dysfunction with an LVEF 60-65%. The patient also had a stress which revealed mild inferior wall abnormality that worsened with stress. The patient denies any other complaints at this time. Past Med Surg Social Fam HX - Past Medical History Attestation: Yes The following information was validated with the patient. Source: patient Medical history: hypertension Psychiatric history: anxiety - Past Surgical History Surgical History: herniorrhaphy - Social History Smoking Status: Current every day smoker Packs per day: 1 Smokeless Tobacco Status: No Alcohol use: none Drug use: none - Family History Father Hx Family Cardiac Disorders: Yes Hx Family Cancer: Yes Medications and Allergies Irbesartan [Avapro] 300 mg PO DAILY 10/19/15 [History] LORazepam [Ativan] 1 mg PO TID PRN 10/19/15 [History] Zolpidem [Ambien] 10 mg PO HS PRN 11/22/16 [History] Allergies cephalexin [From Keflex] Adverse Reaction (Verified 04/29/16 10:55) Vomiting All Systems Review: A 10-system review of systems was performed and is negative for pertinent findings except as documented above in the HPI. - Cardiovascular Cardiovascular: chest pain with exertion, dyspnea on exertion Physical Examination Vital Signs, Last 4 Hours Temp Pulse Resp BP Pulse Ox 11/24/16 07:56 98.0 F 82 17 129/84 95 General: Conversant, No Apparent Distress HEENT: Atraumatic, Normocephaly, Mucus Membranes Moist Neck: No JVD, Normal carotid pulses Cardiac: Reg Rate and Rhythm, Normal S1 and S2, No Murmur Lungs: Normal Breath Sounds, No Wheeze, Rales, Rhonchi Neuro: Alert and responsive, No focal deficits noted Abdomen: Soft, Non-Tender Skin: No rashes noted on visualized skin Musculoskeletal: No Chest Wall Tenderness Extremities: No Clubbing, No Cyanosis, No Edema, Normal Pulses Results 11/22/16 18:52 11/22/16 18:52 Consult Discharge Plan - Plan Referrals: Opal Barnes DO [Primary Care Provider] - - Attending Attestation I examined this patient and my medical decision-making was reviewed with the Resident Physician. I agree with the documented findings, disposition and treatment plan as described except to the extent set forth below. <Joce Judd G - Last Filed: 11/24/16 12:31> Assessment and Plan Discussion w patient/family: The assessment and plan as outlined above was discussed with the patient and/or family members who expressed understanding and agreement. All questions were answered. Thank you for involving us in the care of your patient. Please call with any questions. History of Present Illness History of present illness: Mr. Perez is a 45 year old male All Systems Review: A 10-system review of systems was performed and is negative for pertinent findings except as documented above in the HPI. Physical Examination Vital Signs, Last 4 Hours Temp Pulse Resp BP Pulse Ox 11/24/16 11:26 97.6 F 82 17 134/73 95 Results 11/22/16 18:52 11/22/16 18:52 - Attending Attestation Pt has good history of angina, central pain, POLK, several risk factors VSS JVD: 6-7 cm Chest: Clear CVS: RRR EKG: no acute changes GXT: inf wall ischemia plan; ASA Statin cath today pt understand risks of procedure wishes to proceed
[2016-11-24] MEDS: *HR* HYDROcodone/Acet 5/325 mg TABLET PO PRN (11:27)
[2016-11-24] MEDS ORDERED: Verapamil 5 MG/2 ML VIAL ONE (11:41)
[2016-11-24] MEDS ORDERED: *HR* Heparin 10,000 UNIT/10 ML VIAL ONE (11:42)
[2016-11-24] MEDS ORDERED: 0.9 % Sodium Chloride 1,000 ML ONE ×2 (11:42→12:54)
[2016-11-24] MEDS ORDERED: Nitroglycerin 1,000 MCG/10 ML VIAL IV ONE (11:42)
[2016-11-24] MEDS ORDERED: Heparin 1,000 UNITS/500 mL NS 500 ML ONE (11:42)
[2016-11-24] MEDS ORDERED: *HR* Midazolam HCl 2 MG/2 ML VIAL ONE ×2 (12:40→13:05)
[2016-11-24] MEDS ORDERED: *HR* FentaNYL (PF) 100 MCG/2 ML VIAL ONE (12:41)
--- NOTE | 2016-11-24 13:06 | Pre-Sedation Evaluation ---
Pre-sedation evaluation - Pre-sedation checklist Date of procedure: 11/24/16 Procedure: [facility] Recent Vitals: Last Vital Signs Temp 97.6 F 11/24/16 11:26 Pulse 82 11/24/16 11:26 Resp 17 11/24/16 11:26 BP 134/73 11/24/16 11:26 Pulse Ox 95 11/24/16 11:26 H&P (including ROS) documented in medical record: Yes Previous reaction to sedatives/anesthetics: No Dietary Status: No solid food in preceding 4 hrs and no liquid in preceding 2 hrs Dentition: No loose teeth or bridges ASA Classification *see protocol: CLASS II-Mild systemic disease Plan of Care: Pt appropriate candidate for procedure/moderate/conscious sedation , Risks/benefits of procedure/sedation discussed w/ patient/family
--- NOTE | 2016-11-24 13:49 | Invasive Diagnostic Lab Proc ---
Name: Jacinto Perez Date of Study: 11/24/2016 Date: 1970 Ht: 72.0in Medical Record#: [id number] Age: 45 Wt: 306.44lb Gender: Male BSA: 2.56 Order #: [id number] BMI: 41.51 Physicians Procedure Physician: Conner Tai MD, FACC Referring MD: Opal Barnes DO Referring MD: Staff Name Position Time In Marguerite Panda RT (R) Monitor 12:43 PM Melody Martines RN Waterside Worker 12:43 PM Ras Genesis RT (R) Scrub 12:43 PM Indications Indication Abnormal Test - Stress Procedures Performed Procedure L HRT ARTERY/VENTRICLE ANGIO Pre-Procedure Checklist Informed consent is complete signed and on chart. H\\T\\P is on chart. ID band is on and ID verified with patient. Patient NPO for procedure The procedure was described for the patient and questions were answered. Blood Pressure: 134/73 ECG is on chart. Plan of Care Patient will tolerate the procedure without complications. Adequate level of comfort will be maintained. Hemodynamics will remain stable Patient will recover from procedure without complications. Respiratory function will be maintained. Cardiac rhythm will remain stable. Patient temperature will be maintained. Patient and/or family have verbalized understanding of the procedure. Patient Education Chief Complaint/Reason for Test: Cardiac Cath Developmental Category: Adult (18-64 years) Developmentally Appropriate for Age: Yes Learning Barriers: None Education Needs: Procedure Education Method: Verbal Information Taught: Cardiac Cath Educational Evaluation: Able to repeat information Intravenous Access Time IV Size Location DC'd Fluid/Drip Rate Units RN 01:04 PM 20g 1 /" Patent On Arrival Rt Wrist 0.9NaCl 25 ml/hr Allergies cephalexin Vital Signs Time BP (mmHg) HR (bpm) O2 Sat. RR (bpm) LOC 134 / 73 70 95 % 16 5 = Fully awake and oriented or at pre-proc level 01:02 PM / % 4 = Oriented but drowsy 01:02 PM / % 5 = Fully awake and oriented or at pre-proc level 01:18 PM / % 4 = Oriented but drowsy Procedural Medications Time Medication Dose Units Method Given By 01:02 PM Oxygen 2 L/min nasal cannula Melody Martines RN 01:02 PM Versed 2 mg Intravenous Melody Martines RN 01:02 PM Fentanyl 50 mcg Intravenous Melody Martines RN 01:21 PM Lidocaine 2% 1 ml Subcutaneous Conner Tai MD, FAC 01:22 PM Versed 1 mg Intravenous Melody Martines RN 01:22 PM Fentanyl 25 mcg Intravenous Melody Martines RN 01:23 PM Heparin 4000 units Nitroglycerin 200 mcg Verapamil 2.5 mg Intraarterial Conner Tai MD, FAC 01:28 PM Versed 1 mg Intravenous Melody Martines RN 01:28 PM Fentanyl 25 mcg Intravenous Melody Martines RN Neelima Score Preprocedure Postprocedure Activity 2- Moves 4 extremities sustained head lift Activity 2- Moves 4 extremities sustained head lift Circulation 2- SBP +/= 20 points of pre-anesthetic level Circulation 2- SBP +/= 20 points of pre-anesthetic level Consciousness 2- Awake and alert oriented x 3 Consciousness 2- Awake and alert oriented x 3 O2 Saturation 2- Able to maintain O2 satruation of 92% on room air O2 Saturation 2- Able to maintain O2 satruation of 92% on room air Respiratory 2- Able to deep breathe and cough well Respiratory 2- Able to deep breathe and cough well Total Score 10 Total Score 10 Contrast Agent: Isovue Diagnostic Contrast: 66 ml Total Contrast: 66 ml Fluoro Dose: 324 mGy Procedure Log Time Note Enter By 12:43 PM Pt arrived to woven label designer 2 at 12:43 [email or web address] 12:43 PM Marguerite Panda RT (R) Position: Monitor Time in: 12:43 [email or web address] 12:43 PM Melody Martines RN Position: Waterside Worker Time in: 12:43 [email or web address] 12:44 PM Genesis Mcginnis RT (R) Position: Scrub Time in: 12:43 [email or web address] 12:44 PM Patient charges- Angio tray pack, Navilyst 3mm J, Pulse Oximetry and ACIST tubing and transducer [email or web address] 12:44 PM Case Delayed No [email or web address] 12:44 PM Physican paged/called 12:44. [email or web address] 01:02 PM Physician arrived 13:02 [email or web address] 01:02 PM Meet and greet completed [email or web address] 01:02 PM Sign in performed according to hospital policy. [email or web address] 01:02 PM Procedure start 13:02 [email or web address] 01:02 PM Time: 13:02 Oxygen on at 2 L/min per nasal cannula by Melody Martines RN [email or web address] 01:02 PM Time: 13:02 Versed 2 mg Intravenous Given by Melody Martines [email or web address] 01:02 PM Time: 13:02 Fentanyl 50 mcg Intravenous Given by Melody Martines [email or web address] 01:02 PM Time: 13:02 Patient comfortable and pain free: Yes [email or web address] 01:02 PM Time: 13:02LOC: 4 = Oriented but drowsy [email or web address] 01:18 PM Time: 13:02LOC: 5 = Fully awake and oriented or at pre-proc level [email or web address] 01:18 PM Time: 13:02 Patient comfortable and pain free: Yes [email or web address] 01:21 PM Time out performed according to hospital policy [email or web address] 01:21 PM Time: 13:21 1 ml Lidocaine 2% to right radial Subcutaneous Given by Conner Tai MD, [facility] [email or web address] 01:22 PM Time: 13:22 Versed 1 mg Intravenous Given by Melody Martines RN [email or web address] 01:22 PM Time: 13: Fentanyl 25 mcg Intravenous Given by Melody Martines [email or web address] 01:23 PM Access obtained by percutaneous puncture. 6Fr 10cm Terumo Glidesheath sheath placed in right Radial artery. [id number] [email or web address] 01:23 PM Time: 13:23 Patient given 4,000 units Heparin, 200 mcg Nitroglycerin, and 2.5 mg Verapamil Intraarterial by Conner Tai MD, [facility] [email or web address] 01:23 PM 0.035 260cm Navilyst 3mmJ wire [id number] [email or web address] 01:24 PM 5Fr TIG catheter inserted over the wire [facility] [email or web address] 01:25 PM Wire removed [email or web address] 01:26 PM Catheter removed [email or web address] 01:26 PM 5Fr FL 3.5 catheter inserted over the wire [id number] [email or web address] 01:28 PM LCA angiography performed in multiple views. [email or web address] 01:28 PM Time: 13:28 Versed 1 mg Intravenous Given by Melody Martines RN 01:29 PM Time: 13:28 Fentanyl 25 mcg Intravenous Given by Melody Martines RN 3 01:29 PM Catheter removed 01:29 PM 5Fr FR 5 catheter inserted over the wire [id number] 01:31 PM RCA angiography performed in multiple views. 3 01:31 PM Coronary Dominance: right [email or web address] 01:32 PM Catheter removed 3 01:32 PM 5Fr Pigtail catheter inserted over the wire DNC 01:32 PM Catheter selectively placed in left ventricle [email or web address] 01:32 PM Bolus angiogram of left Ventricle complete: 10 ml/sec for a total of 30 mls 3 01:35 PM Time: 13:18 Patient comfortable and pain free: Yes 3 01:35 PM Time: 13:18LOC: 4 = Oriented but drowsy [email or web address] 01:35 PM Catheter removed [email or web address] 01:37 PM Procedure completed at 13:37 [email or web address] 01:37 PM Sign out completed: Radiation Dose 324.35 mGy Fluoro Time: 2.6 Isovue 370 - 200ml contrast 66 ml given by Conner Tai MD, [facility]. Complications: NoneCardiac Rehab Consult needed: NoConfirmed administered medications: Yes [email or web address] 01:37 PM Isovue 370 - 200ml,1 Bottle(s) used. [email or web address] 01:37 PM Arterial sheath pulled, Vasc Band closure device used and was Successful S/N. [email or web address] 01:37 PM 10 ml air in Vasc Band. [email or web address] 01:37 PM Post ECG NSR [email or web address] 01:37 PM Post Blood Pressure 116/60 [email or web address] 01:37 PM 13:37 Post Pulses Bilateral DP \\T\\ PT 2+ [email or web address] 01:38 PM Information taught Cardiac Cath and Vasc Band [email or web address] 01:38 PM Education needs Procedure, Disease Process, and Plan of Care [email or web address] 01:38 PM Learning barriers :None [email or web address] 01:38 PM Education Methods Verbal [email or web address] 01:38 PM Education evaluation Able to repeat information [email or web address] 01:38 PM Site status No bleeding/hematoma - Rt Wrist as reported by Genesis Mcginnis RT (R) at 13:38 [email or web address] 01:38 PM Opsite applied [email or web address] 01:38 PM Delay to floor No [email or web address] 01:38 PM Family placed in consult room. [email or web address] 01:38 PM Complications: None [email or web address] 01:38 PM Fluoro Time: 2.6 [email or web address] 01:43 PM Report given to Johanna CUNNINGHAM Pt taken to 3B Room #53. 13:43 [email or web address] 01:43 PM Patient out of room: 13:43 [email or web address] Complications Complication None None Hemodynamics Pressures Site Systolic/A Wave Diastolic/V Wave Mean AO 92 72 82 AO 123 80 101 LV 82 21 40 LV 132 9 18 Post Procedure Information Blood Pressure: 116/60 mmHg Rhythm: NSR Post procedural instructions were given Closure Device Time Device Success/Fail 11/24/2016 1:39:00 PM VB Successful Site Checks Time Location Status Staff Sheath In? Note 01:38 PM Rt Wrist No bleeding/hematoma Genesis Mcginnis RT (R) Pulses Time Site Pre-Procedure Post-Procedure Note 11/24/2016 11:49:00 AM Bilateral DP \\T\\ PT 2+ Bilateral radial 2+ 1:37:00 PM Bilateral DP \\T\\ PT 2+ Updated by Marguerite Panda, RT(R) on 11/24/2016 1:43:59 PM electronically signed on 11/24/2016 1:45:24 PM with status of Final
--- NOTE | 2016-11-24 14:30 | Event Note ---
Date of Encounter: 11/24/16 Time of Encounter: 14:28 - Cardiology Event Note Cardiac catheterization without lesion. The patient will be signed off by cardiology at this time. Patient advised to stop smoking with extensive counseling numbering in the 5 minute range about smoking cessation. He was advised to keep his sleep study appointment, eat healthier foods, change lifestyle to include exercising. Patient agreed. He will continue with his Avapro.
--- NOTE | 2016-11-24 14:41 | Discharge Summary ---
<Desiree Lozano Mariam - Last Filed: 11/24/16 15:35> Date of Encounter: 11/24/16 Time of Encounter: 14:38 - Discharge Diagnosis (1) Chest pain Priority: Primary Status: Resolved Qualifiers: Chest pain type: precordial pain Qualified Code(s): R07.2 - Precordial pain (2) Obesity (BMI 30-39.9) Priority: Secondary Status: Chronic (3) Tobacco abuse Priority: Secondary Status: Chronic (4) Obstructive sleep apnea Priority: Secondary Status: Chronic - Discharge Medications Prescriptions: Nicotine Patch [Nicoderm] 21 mg TD DAILY #30 patch.td24 Home Medications: Irbesartan [Avapro] 300 mg PO DAILY 10/19/15 [History] LORazepam [Ativan] 1 mg PO TID PRN 10/19/15 [History] Zolpidem [Ambien] 10 mg PO HS PRN 11/22/16 [History] Nicotine Patch [Nicoderm] 21 mg TD DAILY #30 patch.td24 11/24/16 [Rx] Allergies/Adverse Reactions: Allergies cephalexin [From Keflex] Adverse Reaction (Verified 04/29/16 10:55) Vomiting Procedures/tests Complete & Pending: Procedures Performed prior 72 hours Category Date Time Status CL Cardiac Catheterization [CL] Routine Mechanical Assembly Technician 11/24/16 10:36 Ordered NM fransisca perf SPECT multi [NM] Routine Exams 11/22/16 22:59 Taken EV echocardiogram w enhance Routine Y 11/23/16 22:18 Completed SP pharm nuclear stress Routine Y 11/23/16 07:35 Completed Date of admission: 11/22/16 21:00 Primary care physician: Opal Barnes Consults: 11/22/16 22:59 Consult to Pulmonology [CONS] Routine Consulting Provider: [facility] [place] Reason for Consult: sob, bellamy, CHF, ? sleep apnea, ?pulmonary hypertension Call Completed: Yes 11/24/16 10:02 Consult to Cardiology [CONS] Routine Comment: Consulting Provider: Cardiology Nan Reason for Consult: Inferior wall ischemia on stress Call Completed: Yes Discharging clinician: Nacho Crenshaw Anticipated date of discharge: 11/24/16 - Patient Status Disposition: Home, Self-Care Condition: Good Functional capacity at discharge: independent ambulation Overall status at discharge: patient is back to baseline - Discharge Instructions Instructions: Chest Pain (DC), Heart Healthy Diet (DC), Chronic Hypertension ( DC), Dyspnea (GEN) Follow Up With: Opal Barnes DO [Primary Care Provider] - (Please call Dr. Barnes's office to make an appointment in the next 5-7 days Thank you! ) Jose Enrique Rogers MD [Partnered Physician] - 01/17/17 11:15 am Additional Instructions: RISK FACTORS: STOP SMOKING: If you smoke, STOP. Smoking or tobacco use significantly increases your risk of heart disease because nicotine causes the arteries to narrow or constrict. It also causes fats to stick to the artery. Your chances of having a heart attack are greatly increased if you continue to smoke. For more information, call the education line for smoking cessation 1-878-DWGERHS EAT A LOW FAT/CHOLESTEROL/SODIUM DIET: This diet may help reduce your chances of having a heart attack. LIFTING: With affected extremity: Avoid bending, pushing off and lifting more than 2 pounds for 24 hours The following 48 hours, avoid lifting anything more than 5 pounds Avoid strenuous activity or repetitive motions ACTIVITY: You may walk or climb stairs as tolerated You can resume sexual activity as tolerated In general, you are encouraged to engage in a minimum of 30 minutes or more of moderate intensity physical activity, such as brisk walking, daily or at least 3 -4 times weekly BATHING Do not submerge the site into water (bath tub, hot tub, swimming pool, dishes) for 1 week. This can be a source for infection into the blood stream. You may shower after 24 hours SITE CARE: After 24 hours, you may remove the dressing and leave the site open to air. Keep the site clean and dry. Clean gently and pat dry. You can expect bruising and tenderness that gradually resolve within a week or two. Return to work as instructed per your physician Resume driving as instructed per physician Keep all scheduled follow up appointments Resume medications as instructed IMPORTANT: If prescribed a Platelet Aggregation Inhibitor such as, Plavix, Brilinta or Effient: Duration of therapy is minimum one year These medications are often used in combination with Aspirin in prevention of future heart attacks Never discontinue unless consult with your Incinerator Plant Supervisor STROKE (CVA) Risk factors for a stroke are: Age, cigarette smoking, diabetes, excessive alcohol consumption, family history, high blood pressure, overweight, physical inactivity, prior stroke, heart attack, diagnosis of carotid artery stenosis or other artery disease. Warning signs: Sudden numbness or weakness of the face, arm or leg; especially on one side of the body, sudden confusion, trouble speaking or understanding, sudden trouble seeing in one or both eyes, sudden trouble walking, dizziness, loss of balance or coordination, sudden severe headache with no cause. Call 911 or go to the Emergency Room. CONGESTIVE HEART FAILURE: If you have been diagnosed with Congestive Heart Failure (CHF) and your symptoms return, make an appointment with your physician Weigh yourself daily. Notify your physician if you have a weight gain of two or more pounds in one day or five or more pounds in one week. If you experience any difficulty breathing, please call 911 BLEEDING: Although the risk of bleeding is minimal, it can happen. If you have any bleeding from the site, apply firm pressure above the puncture site for 10-15 minutes. If the bleeding does not stop, continue manual pressure and call 911 Contact [facility] ( ) if: You develop a fever greater than 101 degrees Fahrenheit Your site becomes reddened or has any drainage You have an increase in pain or burning at the site or if a large knot forms at the site. If you experience chest pain, shortness of breath, dizziness, or extreme tiredness, stop the activity and rest. Please notify [facility] office if you experience any of these symptoms and they are not relieved by rest please call 911! - Diet and Activity Activity: increase activity as tolerated Diet: advance to your usual diet Hospital course: Mr. Perez is a 45 year old male who presented to hospital with chest pain while mowing grass. Pain was described as heaviness in his chest with radiation to back. Associated with dyspnea on exertion. He has complained of dyspnea on exertion and with lying flat x 2 weeks. Patient was admitted to rule out ACS. EKG with sinus tachycardia. Troponins were 0.00, 0.00, negative for ischemia. Patient underwent stress test 11/23/16 indicating partially fixed defect in inferior wall. Worsening perfusion on stress images in which ischemia cannot be ruled out. Low level exercise ECG negative for ischemia. Gated EF=65%. Echocardiogram 11/23/16 with moderate diastolic dysfunction. Patient underwent left heart cath 11/24/16 and was found to be free of blockage. Patient was seen by Dr. Hernandez, art studio teacher who stated that patient's cough, congestion and wheeze are manifestations of smoker's bronchitis. Mary recommended patient use positive airway pressure at night and abstain from tobacco smoking. Patient will be discharge to home to follow up with PCP in 7-10 days. He will need outpatient obstructive sleep apnea study. - Time Spent with Patient Total time spent providing and/or coordinating discharge services: Greater than 30 minutes (45 minutes including time with patient and time preparing discharge) - Constitutional Vitals: Temp Pulse Resp BP Pulse Ox 97.6 F 82 17 134/73 95 11/24/16 11:26 11/24/16 11:26 11/24/16 11:26 11/24/16 11:26 11/24/16 11:26 General appearance: Present: cooperative, A&O X 3, pleasant, obese, answers questions appropriately - Head Head exam: Present: atraumatic, normocephalic - Eye Eye exam: Present: conjuntiva pink, sclera anicteric Pupils: Present: PERRL - Neck Neck exam general surgery: Present: supple, trachea midline - Respiratory Respiratory exam: Present: CTAB. Absent: accessory muscle use, rales, rhonchi, wheezes - Cardiovascular Cardiovascular exam: Present: RRR, +S1, +S2. Absent: diastolic murmur, gallop, rubs, systolic murmur - GI/Abdominal GI/Abdominal exam: Present: normal bowel sounds, soft, no peritoneal signs. Absent: distended, tenderness Additional comments: Morbidly obese abdomen. Small hernia appreciated in lower abdominal wall, TTP. Organomegaly unable to be appreciated. - Extremities Exam Extremities exam: Present: warm. Absent: cyanotic, pedal edema - Neurological Exam Neurological exam: Present: CN II-XII intact, oriented X3, no focal deficits. Absent: pronater drift, facial droop, speech deficit - Skin Skin exam: Present: dry, intact <Nacho Crenshaw - Last Filed: 11/24/16 18:02> - Discharge Diagnosis (1) Chest pain Status: Resolved Qualifiers: Chest pain type: precordial pain Qualified Code(s): R07.2 - Precordial pain (2) Obesity (BMI 30-39.9) Status: Chronic (3) Tobacco abuse Status: Chronic (4) Obstructive sleep apnea Status: Chronic Procedures/tests Complete & Pending: Procedures Performed prior 72 hours Category Date Time Status CL Cardiac Catheterization [CL] Routine Mechanical Assembly Technician 11/24/16 10:36 Ordered NM fransisca perf SPECT multi [NM] Routine Exams 11/22/16 22:59 Taken EV echocardiogram w enhance Routine Y 11/23/16 22:18 Completed SP pharm nuclear stress Routine Y 11/23/16 07:35 Completed Date of admission: 11/22/16 21:00 Primary care physician: Opal Barnes Consults: 11/22/16 22:59 Consult to Pulmonology [CONS] Routine Consulting Provider: [facility] Reason for Consult: sob, bellamy, CHF, ? sleep apnea, ?pulmonary hypertension Call Completed: Yes 11/24/16 10:02 Consult to Cardiology [CONS] Routine Comment: Consulting Provider: Cardiology Nan Reason for Consult: Inferior wall ischemia on stress Call Completed: Yes Hospital course: Mr. Perez is a 45 year old male - Time Spent with Patient Total time spent providing and/or coordinating discharge services: - Constitutional Vitals: Temp Pulse Resp BP Pulse Ox 97.8 F 85 16 129/71 95 11/24/16 14:00 11/24/16 15:15 11/24/16 15:15 11/24/16 15:15 11/24/16 15:15 - Attending Attestation I examined this patient and my medical decision-making was reviewed with the PAINTER RAILROAD CAR/PA/Advanced Practice Nurse/Resident Physician. I agree with the documented findings, disposition and treatment plan as described except to the extent set forth below. Cath done, cardiology signed off. Will discharge him home today, follow up with pulmonology as outpatient.
[2016-11-24 15:35] VITALS: BP 129/71
--- NOTE | 2016-11-29 10:03 | Invasive Diagnostic Lab ---
Name: Jacinto Perez Date of Study: 11/24/2016 Date: 1970 Ht: 183.0 cm /72.0 in Medical Record#: [id number] Age: 45 Wt: 139. kg / 306.44 lb Account/Order#: [id number] Gender: Male BSA: 2.56 Order #: [id number] Fluoro Dose: 324 mGy BMI: 41.51 Procedure Physician: Conner Tai MD, FACC Referring MD: Opal Barnes DO Referring MD: Procedures Performed: LEFT HEART CATH Indications: Abnormal Test - Stress Impressions: Coronary arteries are angiographically normal. The left ventricle is normal and has normal contractility EF 60% Recommendations: Optimal medical therapy of patient's disease. Aggressive risk factor modification. History/Risk Factors: POLK SLEEP APNEA Hypertension Current/Recent Smoker Procedure Access obtained in the right Radial artery by percutaneous puncture Complications: None, None Contrast: Isovue 66ml Closure Device: VB Hemodynamics: Pressures Site Systolic/ A Wave Diastolic/ V Wave End Diastolic/ Mean HR AO 92 72 82 AO 123 80 101 LV 82 21 40 LV 132 9 18 LV Ventriculography Ejection Method: LV Gram Ejection Fraction: 60% Wall Motion: BRAR Anterobasal Normal Anterolateral Normal Apical: Normal Inferoapical Normal Inferobasal Normal Coronary Dominance: right Lesion Findings/Interventions * Left Main Coronary Artery The LMCA is angiographically free of disease. * Left Anterior Descending The proximal and mid LAD is angiographically free of disease. The 1st Diagonal is angiographically free of disease. * Circumflex The Circumflex is angiographically free of disease. The 1st Marginal is angiographically free of disease. * Right Coronary Artery The RCA is angiographically free of disease. The Right PDA is angiographically free of disease. Updated by RT Mickey(R) on 11/24/2016 1:44:40 PM Conner Tai MD, FACC electronically signed on 11/29/2016 9:57:40 AM with status of Final
== END 2016-11-24 16:30 | disposition home or self-care (01) ==
LOC: 3BNU 18:22 → EMEROO 18:22 → SUATTDRO 21:00 → 3BNU 22:04
PROVIDERS: ADMIT Family Medicine; ATTEND Internal Medicine

== ENCOUNTER 2018-05-13 21:25 | Observation (INO) ==
--- NOTE | 2018-05-13 21:38 | Emergency Department Note ---
Disposition Clinical Impression: Chest pain, Neck pain, Obesity (BMI 30-39.9) Disposition: Admitted As Inpatient Condition: Good General Adult HPI - General Chief complaint: ED Chest Pain Stated complaint: chest pain Time Seen by Provider: 05/13/18 21:30 - History of Present Illness Pain Scale: 10 - Related Data Home Medications Medication Instructions Recorded Confirmed Irbesartan [Avapro] 300 mg PO DAILY 10/19/15 05/14/18 LORazepam [Ativan] 1 mg PO TID PRN 10/19/15 05/14/18 Zolpidem [Ambien] 10 mg PO HS PRN 11/22/16 05/14/18 Venlafaxine [Effexor] 37.5 mg PO DAILY 05/14/18 05/14/18 Allergies Allergy/AdvReac Type Severity Reaction Status Date / Time cephalexin [From Keflex] AdvReac Vomiting Verified 11/08/17 10:21 Past Medical History - Past Medical History Medical history: Reports: hypertension Surgical history: Reports: herniorrhaphy Psychiatric history: Reports: anxiety - Social History Smoking Status: Current every day smoker Smokeless Tobacco Status: No Alcohol use: Reports: none Drug use: Reports: none Physical Exam - General General appearance: alert, in no apparent distress Course Vital Signs Temperature 98 F 05/13/18 21:27 Pulse Rate 136 05/13/18 21:27 Respiratory Rate 20 05/13/18 21:27 Blood Pressure 154/79 05/13/18 21:27 O2 Sat by Pulse Oximetry 96 05/13/18 21:27 Temperature 97.7 F 05/14/18 03:49 Pulse Rate 81 05/14/18 03:49 Respiratory Rate 20 05/14/18 03:49 Blood Pressure 110/65 05/14/18 04:27 O2 Sat by Pulse Oximetry 97 05/14/18 03:49 Oxygen Delivery Oxygen Delivery Room Air Medical Decision Making - Lab Data Result diagrams: 05/14/18 05:36 05/14/18 05:36 Lab Results 05/13/18 05/13/18 05/13/18 Range/Units 21:38 21:38 21:38 WBC 7.6 (4.3-11.1) K/mcL RBC 5.40 (4.19-5.50) M/mcL Hgb 16.9 (12.9-16.9) g/dL Hct 45.8 (37.5-50.1) % MCV 84.8 (83.0-100.0) fL MCH 31.3 (28.0-33.3) pg MCHC 36.9 H (31.6-35.5) g/dL RDW 13.1 (11.5-14.5) % Plt Count 215 (140-400) K/mcL MPV 10.1 (9.4-12.4) fL Immature Gran % 0.4 (0-4) % Seg Neutrophils % 60.1 % Lymphocytes % 29.2 % Monocytes % 8.9 % Eosinophils % 0.9 % Basophils % 0.5 % Neutrophils # 4.6 (1.6-8.9) K/mcL Lymphocytes # 2.2 (0.6-4.6) K/mcL Monocytes # 0.7 (0.0-1.3) K/mcL Eosinophils # 0.1 (0.0-0.6) K/mcL Basophils # 0.0 (0.0-0.2) K/mcL PT 10.8 (9.4-12.1) Seconds INR 1.0 APTT 36.7 H (26.0-36.0) Seconds D-Dimer < 215 (0-500) ng/mLFEU Sodium (136-145) mEq/L Potassium (3.5-5.1) mEq/L Chloride (98-107) mEq/L Carbon Dioxide (23-29) mEq/L BUN (6-20) mg/dL Creatinine (0.70-1.30) mg/dL Est GFR ( Amer) (> 60) Est GFR (Non-Af Amer) (> 60) BUN/Creatinine Ratio (6-26) Glucose (70-105) mg/dL Calculated Osmolality (280-300) Calcium (8.6-10.3) mg/dL Troponin I (< 0.04) ng/mL B-Natriuretic Peptide 11 (Less than 100) pg/mL 05/13/18 Range/Units 21:38 WBC (4.3-11.1) K/mcL RBC (4.19-5.50) M/mcL Hgb (12.9-16.9) g/dL Hct (37.5-50.1) % MCV (83.0-100.0) fL MCH (28.0-33.3) pg MCHC (31.6-35.5) g/dL RDW (11.5-14.5) % Plt Count (140-400) K/mcL MPV (9.4-12.4) fL Immature Gran % (0-4) % Seg Neutrophils % % Lymphocytes % % Monocytes % % Eosinophils % % Basophils % % Neutrophils # (1.6-8.9) K/mcL Lymphocytes # (0.6-4.6) K/mcL Monocytes # (0.0-1.3) K/mcL Eosinophils # (0.0-0.6) K/mcL Basophils # (0.0-0.2) K/mcL PT (9.4-12.1) Seconds INR APTT (26.0-36.0) Seconds D-Dimer (0-500) ng/mLFEU Sodium 139 (136-145) mEq/L Potassium 3.7 (3.5-5.1) mEq/L Chloride 105 (98-107) mEq/L Carbon Dioxide 23 (23-29) mEq/L BUN 13 (6-20) mg/dL Creatinine 0.84 (0.70-1.30) mg/dL Est GFR ( Amer) > 60 (> 60) Est GFR (Non-Af Amer) > 60 (> 60) BUN/Creatinine Ratio 15 (6-26) Glucose 116 H (70-105) mg/dL Calculated Osmolality 289 (280-300) Calcium 8.7 (8.6-10.3) mg/dL Troponin I 0.03 (< 0.04) ng/mL B-Natriuretic Peptide (Less than 100) pg/mL Attestation Statement - Attestation Attestation: I examined this patient and my medical decision-making was reviewed with the Resident Physician. I agree with the documented findings, disposition and treatment plan as described except to the extent set forth below. Gbdt-cv-edum time provided Patient arrives complaining of 7 hours of dyspnea, chest discomfort, tachycardia. He describes "heart racing." He is tachycardic upon arrival. ECG reviewed by me. Workup initiated
[2018-05-13 21:48] LABS: Basophils % 0.5 %; Eosinophils # 0.1 K/mcL (0.0-0.6); Eosinophils % 0.9 %; Hematocrit 45.8 % (37.5-50.1); Hemoglobin 16.9 g/dL (12.9-16.9); Immature Granulocytes % 0.4 % (0-4); Lymphocytes # 2.2 K/mcL (0.6-4.6); Lymphocytes % 29.2 %; Mean Corpuscular HGB Conc 36.9 g/dL (31.6-35.5); Mean Corpuscular Hemoglobin 31.3 pg (28.0-33.3); Mean Corpuscular Volume 84.8 fL (83.0-100.0); Mean Platelet Volume 10.1 fL (9.4-12.4); Monocytes # 0.7 K/mcL (0.0-1.3); Monocytes % 8.9 %; Neutrophils # 4.6 K/mcL (1.6-8.9); Platelet Count 215 K/mcL (140-400); Red Cell Distribution Width 13.1 % (11.5-14.5); Segmented Neutrophils % 60.1 %
[2018-05-13 21:55] LABS: Prothrombin Time 10.8 Seconds (9.4-12.1)
[2018-05-13 21:57] LABS: Activated Partial Thrombo Time 36.7 Seconds (26.0-36.0)
[2018-05-13] MEDS ORDERED: Isovue-370 500 ML INFUS..BTL IV ONE (22:01)
[2018-05-13 22:09] LABS: BUN/Creatinine Ratio 15 (6-26); Blood Urea Nitrogen 13 mg/dL (6-20); Calcium 8.7 mg/dL (8.6-10.3); Carbon Dioxide 23 mEq/L (23-29); Chloride 105 mEq/L (98-107); Glucose 116 mg/dL (70-105); Osmolality,Calculated 289 (280-300); Potassium 3.7 mEq/L (3.5-5.1); Sodium 139 mEq/L (136-145); eGFR For Non-African Americans > 60 (> 60)
[2018-05-13 22:10] LABS: Troponin I 0.03 ng/mL (< 0.04)
[2018-05-13 22:30] LABS: D-Dimer < 215 ng/mLFEU (0-500)
[2018-05-13] MEDS ORDERED: *HR* Nalbuphine 10 MG/ML AMPUL IVP ONE (23:02)
[2018-05-13] MEDS ORDERED: *HR* FentaNYL (PF) 100 MCG/2 ML VIAL IVP ONE (23:41)
[2018-05-13] MEDS ORDERED: Aspirin 81 MG TAB.CHEW PO STA (23:41)
--- NOTE | 2018-05-14 00:08 | Emergency Department Note ---
Disposition Clinical Impression: Neck pain, Obesity (BMI 30-39.9) Chest pain Qualifiers: Chest pain type: unspecified Qualified Code(s): R07.9 - Chest pain, unspecified Disposition: Admitted As Inpatient Condition: Good Referrals: Opal Barnes DO [Primary Care Provider] - Forms: ED Satisfaction Letter Time of Disposition: 01:16 Chest Pain HPI - General Chief Complaint: ED Chest Pain Stated Complaint: chest pain Time Seen by Provider: 05/13/18 21:30 Source: patient Mode of arrival: ambulatory Limitations: no limitations Vital Signs Reviewed: Yes Nursing Notes Reviewed: Yes - History of Present Illness HPI Narrative: 47-year-old male obese, smoker history hypertension presents emergency department with chest pain. He reports chest pain occurring around 1900 described as a heaviness over his chest with associated shortness of breath at rest. No prior history of this. Does worsen with exertion. He also reports some neck and headache afterwards with some associated lightheadedness. Reports throbbing pain in the center if his eyes. No changes in vision. Denies any fall or injury. No weakness to his extremities. Reports some nausea no vomiting. Reports family history. Denies any history of cancer long- distance travel or blood clots. No leg swelling. Reports a similar history of this about a year ago he was admitted for this. He states and echocardiogram showed that part of his heart was not pumping well. He was supposed to follow with a packing and wrapping supervisor but never dated as it did gradually improve. Pt complaint: chest pain Severity scale (1-10): 10 - Related Data Home Medications Medication Instructions Recorded Confirmed Irbesartan [Avapro] 300 mg PO DAILY 10/19/15 05/14/18 LORazepam [Ativan] 1 mg PO TID PRN 10/19/15 05/14/18 Zolpidem [Ambien] 10 mg PO HS PRN 11/22/16 05/14/18 Venlafaxine [Effexor] 37.5 mg PO DAILY 05/14/18 05/14/18 Allergies Allergy/AdvReac Type Severity Reaction Status Date / Time cephalexin [From Keflex] AdvReac Vomiting Verified 11/08/17 10:21 All systems ED: reviewed and negative except as stated. Review of Systems: As Per HPI Constitutional: Denies: fever, chills Cardiovascular: Reports: chest pain Respiratory: Reports: dyspnea Gastrointestinal: Reports: nausea. Denies: abdominal pain, vomiting Genitourinary: Denies: urgency, dysuria Musculoskeletal: Reports: neck pain. Denies: back pain Neurological: Reports: headache Chest Pain PMH - Past Medical History Medical history: Reports: hypertension Surgical history: Reports: herniorrhaphy Psychiatric history: Reports: anxiety - Social History Smoking Status: Current every day smoker Alcohol use: Reports: none Drug use: Reports: none Physical Exam - General Limitations: no limitations General appearance: alert, in distress (Appears uncomfortable), obese - Head Head exam: atraumatic, normocephalic, normal inspection - Eye Eye exam: Present: normal appearance, PERRL, EOMI. Absent: nystagmus - ENT ENT exam: normal exam, normal oropharynx, mucous membranes moist - Neck Neck exam: Present: normal inspection, full ROM, trachea midline - Chest Chest inspection: Present: normal inspection, symmetric chest wall rise. Absent : tenderness - Respiratory Respiratory exam: Present: normal lung sounds bilaterally. Absent: respiratory distress, wheezes - Cardiovascular Cardiovascular exam: Present: regular rate, normal rhythm, normal heart sounds - Expanded Cardiovascular Exam Peripheral pulses: 2+: radial (R), radial (L) - Abdominal Exam Abdominal exam: Present: soft (Obese), Non-Tender, normal bowel sounds. Absent : tenderness, distention, guarding, rebound, rigidity - Extremities Exam Extremities exam: Present: normal inspection, full ROM. Absent: tenderness, pedal edema, calf tenderness - Neurological Exam Neurological exam: Present: alert, oriented X3, CN II-XII intact - Expanded Neurological Exam Patient oriented to: Present: person, place, time Speech: Present: fluid speech Cranial nerves: EOM function (II, III, IV, ): Normal, facial sensation (V): Normal, facial palsy (VII): Normal, gag reflex (IX): Normal, spinal accessory function (XI): Normal, tongue deviation (XII): Normal Motor strength - LUE: 5/5 Motor strength - RUE: 5/5 Motor strength - LLE: 5/5 Motor strength - RLE: 5/5 Upper motor neuron exam: cassi neglect: Absent bilaterally, pronator drift: Absent bilaterally Sensory exam upper extremity: light touch: Normal Sensory exam lower extremity: light touch: Normal Coma Scale Eye Opening: Spontaneous Coma Scale Motor Response: Obeys Commands Coma Scale Verbal Response: Oriented Coma Scale Total: 15 - Psychiatric Psychiatric exam: Present: normal affect, normal mood - Skin Skin exam: Present: warm, dry, intact, normal color. Absent: rash, cyanosis, diaphoresis Course Course Narrative: Patient presents with chest pain for the past several hours. Nonradiating. He also has some associated pain that radiated up to his neck and now is having severe neck pain. No neurologic deficits. Is also having a severe headache. No trauma. At this time concern for possible dissection as well as ACS. Workup initiated. - Reevaluation(s) Reevaluation #1: EKG did not reveal any acute ischemic changes. He continues to be tachycardic. His troponin was 0.03. His D dimer was less than 215. His labs or otherwise unremarkable. He continues persistent pain despite after the aspirin Tylenol fentanyl. Will at this time trial nitro as he reports history of headaches taken it before. At this time he would like to take it to see if it helps with his chest discomfort. Given his persistent symptoms patient will be admitted for further evaluation. He is in agreement with this plan. CT of the head chest abdomen pelvis and neck unremarkable for dissection or other abnormality. Do not suspect pulmonary embolism given the low D dimer. Impression is chest pain. Reevaluation #2: Improvement with nitro. His heart rate has also improved to 86. Will proceed with admission for further evaluation. Aspirin has been given. HEART score is 5 given symptoms, risk factors and trop of 0.03 Time: 01:36 - Consultations Consultation #1: Spoke with on-call hospitalist dale Friedman to admit for chest pain adn neck pain. No further orders at this time Time: 02:27 Vital Signs Temperature 98 F 05/13/18 21:27 Pulse Rate 136 05/13/18 21:27 Respiratory Rate 20 05/13/18 21:27 Blood Pressure 154/79 05/13/18 21:27 O2 Sat by Pulse Oximetry 96 05/13/18 21:27 Temperature 98 F 05/13/18 21:32 Pulse Rate 78 05/14/18 02:15 Respiratory Rate 18 05/14/18 02:15 Blood Pressure 130/75 05/14/18 02:15 O2 Sat by Pulse Oximetry 98 05/14/18 02:15 Oxygen Delivery Oxygen Delivery Room Air Chest Pain - MDM Narrative Medical decision making narrative: Patient was discussed with my attending physician who agrees with ED management and final disposition. They independently evaluated the patient. Please refer to their attestation to this encounter for additional information. This note was generated by [employer] voice recognition software and as a result grammatical or spelling errors may occur using this program. - Medical Records Medical records reviewed: Yes I reviewed the patient's medical records. - Lab Data Lab results reviewed: Yes I reviewed the patient's lab results. Result diagrams: 05/13/18 21:38 05/13/18 21:38 Lab Results 05/13/18 05/13/18 05/13/18 Range/Units 21:38 21:38 21:38 WBC 7.6 (4.3-11.1) K/mcL RBC 5.40 (4.19-5.50) M/mcL Hgb 16.9 (12.9-16.9) g/dL Hct 45.8 (37.5-50.1) % MCV 84.8 (83.0-100.0) fL MCH 31.3 (28.0-33.3) pg MCHC 36.9 H (31.6-35.5) g/dL RDW 13.1 (11.5-14.5) % Plt Count 215 (140-400) K/mcL MPV 10.1 (9.4-12.4) fL Immature Gran % 0.4 (0-4) % Seg Neutrophils % 60.1 % Lymphocytes % 29.2 % Monocytes % 8.9 % Eosinophils % 0.9 % Basophils % 0.5 % Neutrophils # 4.6 (1.6-8.9) K/mcL Lymphocytes # 2.2 (0.6-4.6) K/mcL Monocytes # 0.7 (0.0-1.3) K/mcL Eosinophils # 0.1 (0.0-0.6) K/mcL Basophils # 0.0 (0.0-0.2) K/mcL PT 10.8 (9.4-12.1) Seconds INR 1.0 APTT 36.7 H (26.0-36.0) Seconds D-Dimer < 215 (0-500) ng/mLFEU Sodium (136-145) mEq/L Potassium (3.5-5.1) mEq/L Chloride (98-107) mEq/L Carbon Dioxide (23-29) mEq/L BUN (6-20) mg/dL Creatinine (0.70-1.30) mg/dL Est GFR ( Amer) (> 60) Est GFR (Non-Af Amer) (> 60) BUN/Creatinine Ratio (6-26) Glucose (70-105) mg/dL Calculated Osmolality (280-300) Calcium (8.6-10.3) mg/dL Troponin I (< 0.04) ng/mL B-Natriuretic Peptide 11 (Less than 100) pg/mL 05/13/18 Range/Units 21:38 WBC (4.3-11.1) K/mcL RBC (4.19-5.50) M/mcL Hgb (12.9-16.9) g/dL Hct (37.5-50.1) % MCV (83.0-100.0) fL MCH (28.0-33.3) pg MCHC (31.6-35.5) g/dL RDW (11.5-14.5) % Plt Count (140-400) K/mcL MPV (9.4-12.4) fL Immature Gran % (0-4) % Seg Neutrophils % % Lymphocytes % % Monocytes % % Eosinophils % % Basophils % % Neutrophils # (1.6-8.9) K/mcL Lymphocytes # (0.6-4.6) K/mcL Monocytes # (0.0-1.3) K/mcL Eosinophils # (0.0-0.6) K/mcL Basophils # (0.0-0.2) K/mcL PT (9.4-12.1) Seconds INR APTT (26.0-36.0) Seconds D-Dimer (0-500) ng/mLFEU Sodium 139 (136-145) mEq/L Potassium 3.7 (3.5-5.1) mEq/L Chloride 105 (98-107) mEq/L Carbon Dioxide 23 (23-29) mEq/L BUN 13 (6-20) mg/dL Creatinine 0.84 (0.70-1.30) mg/dL Est GFR ( Amer) > 60 (> 60) Est GFR (Non-Af Amer) > 60 (> 60) BUN/Creatinine Ratio 15 (6-26) Glucose 116 H (70-105) mg/dL Calculated Osmolality 289 (280-300) Calcium 8.7 (8.6-10.3) mg/dL Troponin I 0.03 (< 0.04) ng/mL B-Natriuretic Peptide (Less than 100) pg/mL - Radiology Data Radiology results reviewed: Yes I reviewed the patient's radiology results. Chest X-Ray 05/13/18 21:30 IMPRESSION: No acute findings in the chest. D/ / Jonas More MD / Jonas More MD Interpreting Provider: Jonas More MD Chest CTA 05/13/18 22:01 IMPRESSION: No acute abnormality in the aorta, chest, abdomen or pelvis. D/ / Eric Buenrostro MD / Eric Buenrostro MD Interpreting Provider: Eric Buenrostro MD Head CT 05/13/18 22:01 IMPRESSION: No acute intracranial abnormality. D/ / Leonardo Colon MD / Leonardo Colon MD Interpreting Provider: Leonardo Colon MD Neck CTA 05/13/18 22:01 IMPRESSION: Unremarkable CTA of the neck. D/ / Darius Chiang / Darius Chiang Interpreting Provider: Darius Chiang - EKG Data EKG attestation: Yes I reviewed and interpreted this EKG. EKG results narrative: EKG performed 2134 sinus tachycardia 112 beers per minute, good R wave progression, no ST elevation or depression, Q waves in inferior leads intervals within normal limits. Compared to prior EKG performed 06/04/2017 shows similar consistent findings of sinus tachycardia with Q waves in the inferior leads. No acute ischemic changes. Heart Score - Score History: Slightly Suspicious EKG: Non Specific repolarisation Disturbance Age: 45-65 Risk Factors: Equal/Greater than 3 risk factor or history of atherosclerotic disease Troponin: 1-3x normal limit HEART Score Total: 5
[2018-05-14] MEDS: Nitroglycerin 0.4 MG TAB.SUBL SL PRN ×2 (00:55→04:35)
[2018-05-14] MEDS ORDERED: 0.9 % Sodium Chloride 1,000 ML IVC ONE (01:14)
[2018-05-14] MEDS ORDERED: Acetaminophen 325 MG TABLET PO PRN (02:28)
[2018-05-14] MEDS ORDERED: *HR* OxyCODONE Immed Rel 5 MG TABLET PO PRN (02:28)
[2018-05-14] MEDS ORDERED: *HR* HYDROcodone/Acet 5/325 mg TABLET PO PRN (02:28)
[2018-05-14] MEDS ORDERED: Naloxone 0.4 MG/ML INJ IVP PRN (02:28)
[2018-05-14] MEDS ORDERED: *HR* LORazepam 0.5 MG TABLET PO PRN (02:30)
--- NOTE | 2018-05-14 02:39 | Internal Med History&Physical ---
Date of Encounter: 05/14/18 Time of Encounter: 02:40 Internal Medicine - H&P: HPI Chief complaint: chest/neck pain Admitted From: Home History of present illness: Mr. Perez is a 47 year old male with history of hypertension, tobacco abuse, morbid obesity presented to the ED with chest/neck discomfort. Acute onset, started at 7pm, heaviness in nature, associated with SOB, neck discomfort, and headache. No relieving or aggravating factors. No diaphoresis but mildly nauseated. Denies any palpitation, orthopnea, PND, leg swelling. Denies any fever/chills, abdominal pain, change in bowel habits, or dysuria. No other joint pain or rash. Of note, he had a similar presentation in 11/2016 when he underwent LHC which did not show any coronary disease. In the ED, he was tachycardic at 136 but otherwise afebrile and stable blood pressure. Initial workup showed normal CBC, BMP, troponin, and d-dimer. EKG showed sinus tachycardia without ST changes. He also had CT angiogram of head, neck, and chest which did not show any evidence of dissection. He was given Tylenol, fentanyl without much relief but had improvement of his discomfort and tachycardia with the administration of nitroglycerin. After his treatment, he endorses heartburn-like sensation that he has never experienced. His heart score was 5 and therefore he was admitted for observation. Past Med Surg Social Fam HX - Past Medical History Attestation: Yes The following information was validated with the patient. Medical history: hypertension Additional medical history: hernia Psychiatric history: anxiety - Past Surgical History Surgical History: cholecystectomy, herniorrhaphy Additional surgical history: gastric bypass - Social History Smoking Status: Current every day smoker Smokeless Tobacco Status: No Alcohol use: none Drug use: none - Family History Father Hx Family Cardiac Disorders: Yes Hx Family Cancer: Yes Internal Medicine - H&P: Meds Irbesartan [Avapro] 300 mg PO DAILY 10/19/15 [History] LORazepam [Ativan] 1 mg PO TID PRN 10/19/15 [History] Zolpidem [Ambien] 10 mg PO HS PRN 11/22/16 [History] Venlafaxine [Effexor] 37.5 mg PO DAILY 05/14/18 [History] 3 Allergy/AdvReac Type Severity Reaction Status Date / Time cephalexin [From Keflex] AdvReac Vomiting Verified 11/08/17 10:21 All Systems PM: A 10-system review of systems was performed and is negative for pertinent findings except as documented above in the HPI. - Constitutional Vitals: Temp Pulse Resp BP Pulse Ox 98 F 78 18 130/75 98 05/13/18 21:32 05/14/18 02:15 05/14/18 02:15 05/14/18 02:15 05/14/18 02:15 Exam: General: Alert and oriented, not in acute distress. Morbidly obese HEENT:EOM, pupils equal, round and reactive. Cardiovascular:Normal S1 & S2, Pulse regular. Lungs: distant breath sound, unable to appreciate any abnormal breath sounds Abdomen:Soft, non-tender, no rigidity. Extremities:No deformity or swelling Neurological:Normal cognition and motor skills. Non-focal Skin:Normal color, no rash, no lesions. Pulses:Carotid and radial pulses normal +2. Rest of the physical exam is non contributory Internal Med - H&P Results - Labs CBC & Chem 7: 05/13/18 21:38 05/13/18 21:38 Labs: Short CBC 05/13/18 Range/Units 21:38 WBC 7.6 (4.3-11.1) K/mcL Hgb 16.9 (12.9-16.9) g/dL Hct 45.8 (37.5-50.1) % Plt Count 215 (140-400) K/mcL Neutrophils # 4.6 (1.6-8.9) K/mcL BMP 05/13/18 21:38 Sodium 139 Potassium 3.7 Chloride 105 Carbon Dioxide 23 BUN 13 Creatinine 0.84 Glucose 116 H Calcium 8.7 Cardiac Enzymes 05/13/18 Range/Units 21:38 Troponin I 0.03 (< 0.04) ng/mL - Impressions ITS Impressions Chest X-Ray 05/13/18 21:30 IMPRESSION: No acute findings in the chest. D/ / Jonas More MD / Jonas More MD Interpreting Provider: Jonas More MD Chest CTA 08/11/18 22:01 IMPRESSION: No acute abnormality in the aorta, chest, abdomen or pelvis. D/ / Eric Buenrostro MD / Eric Buenrostro MD Interpreting Provider: Eric Buenrostro MD Head CT 05/13/18 22:01 IMPRESSION: No acute intracranial abnormality. D/ / Leonardo Colon MD / Leonardo Colon MD Interpreting Provider: Leonardo Colon MD Neck CTA 05/13/18 22:01 IMPRESSION: Unremarkable CTA of the neck. D/ / Darius Chiang / Darius Chiang Interpreting Provider: Darius Chiang - Assessment and plan (1) Chest pain Current Visit: Yes Status: Acute Assessment and plan: Unclear etiology, very low suspicion for ACS as C 11/2016 did not show any evidence of CAD however, patient had great relief of discomfort after nitro, ?esophageal spasm also presented with sinus tachycardia and noted that the patient is on BZD at home which he takes pretty regularly ?anxiety attack could also be attributed to GERD Angiograms were negative for dissection Troponin negative 1, EKG sinus tachycardia without ST changes check urine drug screen PRN nitro, trial of PPI for 4 weeks would also be reasonable trend troponin, if negative, can probably go home in the morning Qualifiers: Chest pain type: unspecified Qualified Code(s): R07.9 - Chest pain, unspecified (2) Sinus tachycardia Current Visit: Yes Status: Acute Assessment and plan: ?Secondary to anxiety which can also explain his chest/neck discomfort currently normal in rate if recurs, will try ativan (3) Hypertension Current Visit: No Status: Chronic Assessment and plan: Resume home meds Qualifiers: Hypertension type: essential hypertension Qualified Code(s): I10 - Essential (primary) hypertension (4) Tobacco abuse Current Visit: No Status: Chronic Assessment and plan: Consult smoking cessation NRT (5) DVT prophylaxis Current Visit: Yes Status: Acute Assessment and plan: SQ heparin - Time Spent With Patient Total time spent is greater than 50% in coordination of care (as documented) at patient's floor/unit and/or counseling patient:
[2018-05-14] MEDS ORDERED: *HR* Heparin 5,000 UNIT/ML VIAL SQ SCH (06:00)
[2018-05-14 06:11] LABS: Basophils % 0.4 %; Eosinophils # 0.1 K/mcL (0.0-0.6); Hematocrit 43.2 % (37.5-50.1); Hemoglobin 15.5 g/dL (12.9-16.9); Immature Granulocytes % 0.2 % (0-4); Lymphocytes # 1.5 K/mcL (0.6-4.6); Mean Corpuscular HGB Conc 35.9 g/dL (31.6-35.5); Mean Corpuscular Hemoglobin 31.4 pg (28.0-33.3); Mean Corpuscular Volume 87.4 fL (83.0-100.0); Mean Platelet Volume 10.7 fL (9.4-12.4); Monocytes # 0.5 K/mcL (0.0-1.3); Neutrophils # 2.8 K/mcL (1.6-8.9); Platelet Count 192 K/mcL (140-400); Red Blood Count 4.94 M/mcL (4.19-5.50); Red Cell Distribution Width 13.5 % (11.5-14.5); Segmented Neutrophils % 56.4 %
[2018-05-14 06:31] LABS: BUN/Creatinine Ratio 14 (6-26); Blood Urea Nitrogen 12 mg/dL (6-20); Calcium 8.3 mg/dL (8.6-10.3); Carbon Dioxide 28 mEq/L (23-29); Chloride 106 mEq/L (98-107); Glucose 114 mg/dL (70-105); Magnesium 1.9 mg/dL (1.6-2.6); Osmolality,Calculated 291 (280-300); Potassium 3.9 mEq/L (3.5-5.1); Sodium 140 mEq/L (136-145); eGFR For Non-African Americans > 60 (> 60)
[2018-05-14 11:27] VITALS: BP 111/63
--- NOTE | 2018-05-14 13:18 | Discharge Summary ---
- NOTES TO OUTPATIENT PROVIDER Notes to Outpatient Provider: Presented with tachycardia and CP- EKG with no ST T wave abnormalities Had Some GERD sx -will place on PPI for 4 weeks and monitor as outpatient Orders not resulted at time of discharge: Pending orders 05/14/18 10:49 EKG [ECG 12 lead ECG] [ECG] Routine EKG [ECG 12 lead ECG] [ECG] Routine 05/14/18 12:57 Troponin I Routine Date of Encounter: 05/14/18 Time of Encounter: 13:11 - Discharge Diagnosis (1) Chest pain Priority: Primary Status: Acute Assessment and Plan: very low suspicion for ACS as LHC 11/2016 did not show any evidence of CAD Angiograms were negative for dissection Trop negative x3 EKG SR with no ST T wave abnormalities Did have gastric discomfort which was relieved with nitro suspect possible esophageal spasm -Gerd- will cont with PPI x 4 weeks follow up with PCP Anxiety could also be contributing factor - will cont with home Ativan follow up with PCP Encourage life style changes - smoking cessation heart healthy diet weight loss exercise Qualifiers: Chest pain type: unspecified Qualified Code(s): R07.9 - Chest pain, unspecified (2) Hypertension Priority: Secondary Status: Chronic Assessment and Plan: Cont with home medication Qualifiers: Hypertension type: essential hypertension Qualified Code(s): I10 - Essential (primary) hypertension (3) Tobacco abuse Priority: Secondary Status: Chronic Assessment and Plan: encourage patient to stop smoking offered cessation aides but declined at this time (4) Sinus tachycardia Priority: Secondary Status: Acute Assessment and Plan: Suspect Secondary to anxiety which can also explain his chest/neck discomfort currently SR Cont with home ativan Hospital course: Mr. Perez is a 47 year old male PMH of HTN tobacco abuse morbid obesity presented to the ED with complaints of Chest and neck discomfort, heaviness in nature acute onset. No relieving or aggravating factors, He was tachycardiac on presentation and did have some epigastric discomfort which was relieved with nitro. Rest of initial workup was negative . EKG with no ST T wave abnormality Tropinin negative Lab work unremarkable, CT angiogram of head neck and chest which did not show any evidence of dissection. He had LHC 11/2016 did not show any evidence of CAD. No more CP overnight, he remained in SR no changes in morning EKG.Advised patient to stop smoking and life style changes. Will give prescription for PPI x 1 month and follow up with PCP. Patient is hemodynamically stable and ready for discharge. - Time Spent with Patient Total time spent providing and/or coordinating discharge services: - Discharge Medications Prescriptions: Omeprazole [PriLOSEC] 40 mg PO DAILY #30 capsule. Home Medications: Irbesartan [Avapro] 300 mg PO DAILY 10/19/15 [History] LORazepam [Ativan] 1 mg PO TID PRN 10/19/15 [History] Zolpidem [Ambien] 10 mg PO HS PRN 11/22/16 [History] Omeprazole [PriLOSEC] 40 mg PO DAILY #30 capsule. 05/14/18 [Rx] Venlafaxine [Effexor] 37.5 mg PO DAILY 05/14/18 [History] Allergies/Adverse Reactions: 3 Allergy/AdvReac Type Severity Reaction Status Date / Time cephalexin [From Keflex] AdvReac Vomiting Verified 11/08/17 10:21 Date of admission: 05/14/18 02:34 Primary care physician: Opal Barnes Discharging clinician: Kalyn Schmidt Anticipated date of discharge: 05/14/18 - Constitutional Vitals: Temp Pulse Resp BP Pulse Ox 97.9 F 66 15 111/63 94 05/14/18 11:26 05/14/18 11:26 05/14/18 11:26 05/14/18 11:26 05/14/18 11:26 General appearance: Present: A&O X 3, morbidly obese - Head Head exam: Present: atraumatic, normocephalic - Eye Eye exam: Present: PERRL, conjuntiva pink, sclera anicteric - Neck Neck exam general surgery: Present: supple, trachea midline. Absent: lymphadenopathy - Respiratory Respiratory exam: Present: CTAB. Absent: accessory muscle use, rales, rhonchi, wheezes - Cardiovascular Cardiovascular exam: Present: RRR, +S1, +S2. Absent: diastolic murmur, gallop, rubs, systolic murmur - GI/Abdominal GI/Abdominal exam: Present: normal bowel sounds, soft, no peritoneal signs. Absent: distended, tenderness - Extremities Exam Extremities exam: Present: warm, radial pulses palpable and symmetrical. Absent : calf tenderness, cyanotic, pedal edema - Neurological Exam Neurological exam: Present: CN II-XII intact, oriented X3, no focal deficits. Absent: pronater drift, facial droop, speech deficit - Skin Skin exam: Present: dry, intact - Patient Status Disposition: Home, Self-Care Condition: Good Functional capacity at discharge: independent ambulation Overall status at discharge: patient is back to baseline - Discharge Instructions Instructions: Chest Pain (DC) Follow Up With: Opal Barnes DO [Primary Care Provider] - - Diet and Activity Activity: increase activity as tolerated Diet: low fat, low cholesterol
--- NOTE | 2018-05-15 16:18 | Electrocardiograph Report ---
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
--- NOTE | 2018-05-15 16:22 | Electrocardiograph Report ---
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
== END 2018-05-14 14:55 | disposition home or self-care (01) ==
LOC: 3BNU 21:25 → EMEROO 21:25 → 3BNU 05-14 03:40
PROVIDERS: ADMIT Internal Medicine; ATTEND Internal Medicine